=== PATIENT | male | born 1960 | race Caucasian/White ===

== ENCOUNTER 2017-03-21 10:41 | Inpatient (IN) | payer MEDICAID ==
[~2017-03-21] VITALS: Ht 182.9 cm; Wt 90.7 kg
[~2017-03-21 10:41] MED LIST: DIVA125E3 PO; OLAN20TA1 PO; QUET50TA PO
--- NOTE | 2017-03-21 11:20 | NUR ---
CASSIE Ward IN TRIAGE TO ASSESS PT FOR 5150 HOLD.
--- NOTE | 2017-03-21 11:23 | NUR ---
[facility] evaluating patient in triage room.
[2017-03-21 11:24] VITALS: BP 126/105
--- NOTE | 2017-03-21 11:28 | NUR ---
PT PLACED ON 5150 HOLD BY CASSIE HERNDON; SUICIDAL PRECAUTIONS INITIATED.
--- NOTE | 2017-03-21 11:58 | NUR ---
Patient transferred to bed 3 for further care. RN evaluating patient at bedside.
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
[2017-03-21] MEDS ORDERED: NACL 0.9% 1,000 ML IV ONE (13:10)
[2017-03-21] MEDS ORDERED: MULTIVITAMIN-12 10 ML, THIAMINE 100 MG, MAGNESIUM SULFATE 50% 2,000 MG, FOLIC ACID 5 MG... IV ONE ×5 (13:10)
--- NOTE | 2017-03-21 13:15 | NUR ---
PT APPEARS TO BE RESTING COMFORTABLY IN BED; VSS; RR EVEN/UNLABORED; STATES NO ACUTE DISTRESS AT THIS TIME; SUICIDAL PRECAUTIONS IN PLACE; WILL CONTINUE TO MONITOR.
[2017-03-21 13:36] LABS: BASOPHILS # (AUTO) 0.1 K/uL (0.00-0.22); EOSINOPHILS # (AUTO) 0.2 K/uL (0-0.4); EOSINOPHILS % (AUTO) 2.4 % (0.0-4.0); HEMATOCRIT 48.5 % (36-52); HEMOGLOBIN 16.4 g/dL (12.0-18.0); LYMPHOCYTES # (AUTO) 1.8 K/uL (2.0-11.5); MEAN CORPUSCULAR HEMOGLOBIN 30 pg (27-31); MEAN CORPUSCULAR HGB CONC 34 g/dL (33-37); MEAN CORPUSCULAR VOLUME 87 fL (80-94); MONOCYTES # (AUTO) 1.2 K/uL (0.8-1.0); MONOCYTES % (AUTO) 12.5 % (1.7-9.3); NEUTROPHILS # (AUTO) 6.1 K/uL (1.8-7.7); NEUTROPHILS % (AUTO) 65.1 % (42.2-75.2); PLATELET COUNT (AUTO) 249 K/uL (140-450); RED BLOOD CELL COUNT(AUTO) 5.55 MIL/uL (4.20-6.10); RED CELL DISTRIBUTION WIDTH 11.9 % (11.6-13.7); WHITE BLOOD COUNT (AUTO) 9.4 K/uL (4.8-10.8)
--- NOTE | 2017-03-21 13:45 | NUR ---
IV removed TO RT A/C 20 G; NO INFILTRATION, REDNESS, OR SWELLING NOTED AT THIS TIME, BUT IV NOT FLOWING WELL; PT STATES NO PAIN TO SITE. Catheter intact and site benign. Applied folded 4x4 gauze and tape to stop bleeding. PT TOLERATED PROCEDURE WELL.
[2017-03-21 13:47] LABS: ANION GAP 13.8 (8-16); CALCIUM 9.1 mg/dL (8.5-10.1); CARBON DIOXIDE 28.4 mmol/L (21-32); CHLORIDE 103 mmol/L (98-107); GFR ARICAN-AMERICAN 99 mL/min (>90); GFR NON ARICAN-AMERICAN 82 mL/min (>90); GLUCOSE 136 mg/dL (74-106); POTASSIUM 4.2 mmol/L (3.5-5.1); SODIUM SERUM 141 mmol/L (136-145); UREA NITROGEN, BLOOD 10 mg/dL (7-18)
[2017-03-21 13:51] LABS: INR 1.1 (0.8-1.2); PARTIAL THROMBOPLASTIN TIME 24.7 secs (22-35.6); PROTHROMBIN TIME 11.2 secs (10.8-13.4)
[2017-03-21 13:55] LABS: ALANINE AMINOTRANSFERASE 27 U/L (12-78); ALBUMIN 3.7 g/dL (3.4-5.0); ALCOHOL, BLOOD < 3 mg/dL (<3); ALKALINE PHOSPHATASE 89 U/L (46-116); ASPARTATE AMINOTRANSFERASE 23 U/L (15-37); BILIRUBIN,DIRECT 0.2 mg/dL (0.0-0.3); TOTAL PROTEIN, SERUM 7.7 g/dL (6.4-8.2)
--- NOTE | 2017-03-21 14:20 | NUR ---
Note chris in ED - 03/21/17 at 1547 by MEDSS PT APPEARS TO BE SLEEPING COMFORTABLY IN BED; VSS; RR EVEN/UNLABORED; STATES NO ACUTE DISTRESS AT THIS TIME; SUICIDAL PRECAUTIONS IN PLACE; WILL CONTINUE TO MONITOR.
--- NOTE | 2017-03-21 14:20 | NUR ---
PT APPEARS TO BE SLEEPING COMFORTABLY IN BED; VSS; RR EVEN/UNLABORED; POSITIONED FOR COMFORT; SUICIDAL PRECAUTIONS IN PLACE; WILL CONTINUE TO MONITOR.
[2017-03-21 14:43] LABS: APPEARANCE,URINE CLEAR (CLEAR); BILIRUBIN,URINE 1+ (NEGATIVE); BLOOD, URINE TRACE-I (NEGATIVE); COLOR,URINE YELLOW (YELLOW); LEUKOCYTE ESTERASE ,URINE NEGATIVE (NEGATIVE); NITRITE, URINE NEGATIVE (NEGATIVE); PH,URINE 5.5 (5.0-9.0); PROTEIN,URINE TRACE (NEGATIVE); UGLUCOSE NEGATIVE (NEGATIVE); UROBILINOGEN,URINE >=8.0 EU/dL (0.2 - 1)
[2017-03-21 14:54] LABS: ICTOTEST NEGATIVE (NEGATIVE)
[2017-03-21 14:55] LABS: RBC,URINE NONE SEEN /HPF (0-5)
[2017-03-21 14:56] LABS: BACTERIA,URINE None Seen /HPF (None Seen); MUCUS,URINE 1+ /LPF (None Seen); SQUAMOUS EPITHELIAL CELL,UR None Seen /LPF (0-3 (FEW)); WBC,URINE 0-2 /HPF (0-5)
[2017-03-21 14:58] LABS: AMPHETAMINE, URINE POS. ng/ml (NEG <=1000); BARBITURATE, URINE NEG. ng/ml (NEG <=200); BENZODIAZEPINE, URINE NEG. ng/mL (NEG <=200); CANNABINOID, URINE NEG. ng/mL (NEG <=50); COCAINE, URINE NEG. ng/mL (NEG <=300); OPIATE, URINE NEG. ng/mL (NEG <=2000); PHENCYCLIDINE SCREEN,URINE NEG. ng/mL (NEG <=25)
--- NOTE | 2017-03-21 15:45 | NUR ---
PT APPEARS TO BE SLEEPING COMFORTABLY IN BED; VSS; RR EVEN/UNLABORED; POSITIONED FOR COMFORT; SUICIDAL PRECAUTIONS IN PLACE; WILL CONTINUE TO MONITOR.
--- NOTE | 2017-03-21 16:48 | NUR ---
PT APPEARS TO BE SLEEPING COMFORTABLY IN BED; VSS; RR EVEN/UNLABORED; POSITIONED FOR COMFORT; SUICIDAL PRECAUTIONS IN PLACE; WILL CONTINUE TO MONITOR.
[2017-03-21] MEDS ORDERED: IBUPROFEN 800 MG TAB PO ONE (16:55)
--- NOTE | 2017-03-21 18:30 | NUR ---
PT APPEARS TO BE SLEEPING COMFORTABLY IN BED; VSS; RR EVEN/UNLABORED; POSITIONED FOR COMFORT; SUICIDAL PRECAUTIONS IN PLACE; WILL CONTINUE TO MONITOR.
--- NOTE | 2017-03-21 19:05 | NUR ---
REPORT RECEIVED FROM CATHERINE NEW
--- NOTE | 2017-03-21 19:06 | NUR ---
Pt report given to CATHERINE BRIAN. Transfer of care at this time.
--- NOTE | 2017-03-21 19:30 | NUR ---
PT AGITATED, SCREAMING AND YELLING, USING PROFANITY. CN/RN/SECURITY AND CHP OFFICER AT BEDSIDE. PT FINALLY CALMED DOWN AND WAS INFORMED HE NEEDED TO STAY IN HIS BED. CASSIE HRENDON WAS NOTIFIED AND ON THEIR WAY.
[2017-03-21] MEDS ORDERED: MORPHINE SULFATE 2 MG/ML SYR IVP PRN (19:35)
[2017-03-21] MEDS ORDERED: HYDROcodone/APAP 7.5/325 MG 1 TAB PO PRN (19:35)
[2017-03-21] MEDS ORDERED: ACETAMINOPHEN 325 MG TAB PO PRN (19:35)
[2017-03-21] MEDS ORDERED: DOCUSATE SODIUM 100 MG GELCAP PO PRN (19:35)
[2017-03-21] MEDS ORDERED: ONDANSETRON 4 MG/2 ML VIAL IM/IVP PRN (19:35)
[2017-03-21] MEDS ORDERED: LORazepam 2 MG/ML VIAL IVP ONE (19:40)
[2017-03-21] MEDS ORDERED: diphenhydrAMINE 50 MG/ML VIAL IVP ONE (19:40)
--- NOTE | 2017-03-21 19:50 | NUR ---
CASSIE HERNDON SHOWED UP TO TALK WITH PT, HE HAS CALMED DOWN AT THIS TIME. TALKING APPROPRIATE WITH STAFF. MEDS GIVEN. PT TOLERATED WELL. CASSIE HERNDON TOOK NO FURTHER ACTION.
--- NOTE | 2017-03-21 20:00 | NUR ---
PT SLEEPING AT THIS TIME, NO ACUTE DISTRESS NOTED.
--- NOTE | 2017-03-21 20:15 | NUR ---
Patient noted to have existing wounds upon arrival to ER. Photos taken of wound and placed in chart. Physician informed.
[2017-03-21 20:28] LABS: CHOL/HDL RATIO 2.5 (1-4.5); FREE T4 (FREE THYROXINE) 0.85 ng/dL (0.76-1.46); PHOSPHORUS 3.2 mg/dL (2.5-4.9); THYROID STIMULATING HORMONE 1.68 uIU/mL (0.34-3.76)
--- NOTE | 2017-03-21 20:32 | NUR ---
LABS DRAWN AT BEDSIDE
[2017-03-21] MEDS: NACL 0.9% 1,000 ML IV SCH (20:54)
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
--- NOTE | 2017-03-21 21:05 | NUR ---
Patient will be admitted to care of DR MARTINEZ. Admited to TELE. Will go to room 121B. Belongings list completed. Report to CATHERINE LUA.
[2017-03-21 21:10] LABS: LACTIC ACID 2.4 mmol/L (0.4-2.0)
[2017-03-21] MEDS ORDERED: diphenhydrAMINE 50 MG/ML VIAL IVP PRN (21:25)
[2017-03-21] MEDS ORDERED: HALOPERIDOL IM 5 MG/ML VIAL IM ONE ×2 (21:25→21:40)
[2017-03-21] MEDS: LORazepam 2 MG/ML VIAL IM/IVP PRN (22:31)
[2017-03-22] VITALS: BP 118/72
--- NOTE | 2017-03-22 00:40 | NUR ---
PT IS SLEEPING RIGHT NOW BUT EASILY AROUSABLE. NO S/S OF ANY DISCOMFORT AT THIS TIME. ALL NEEDS ARE ATTENDED. CALL LIGHT WITHIN REACH. WILL CONTINUE TO MONITOR.
[2017-03-22] MEDS: LORazepam 2 MG/ML VIAL IM/IVP PRN (03:18)
[2017-03-22 04:00] VITALS: BP 123/70
--- NOTE | 2017-03-22 05:45 | NUR ---
AM CARE RENDERED. BED LINEN CHANGED. INSTRUCTED PT TO REPOSITION. KEPT CLEAN AND DRY. CALL LIGHT WITHIN REACH. WILL CONTINUE TO MONITOR.
--- NOTE | 2017-03-22 07:18 | NUR ---
PT HAS NO S/S OF ANY DISCOMFORT. PLAN OF CARE ENDORSE TO TED RN AT BEDSIDE FOR CONTINUITY OF CARE.
--- NOTE | 2017-03-22 07:20 | NUR ---
REPORT RECIEVED FROM SECURITY INSTALLER, PT RESTING QUIETLY WITH EYES CLOSED, RESP EVEN UNLABORED ON RA IN NAD, IV SITE CLEAR, PLAN OF CARE DISCUSSED, PT DOES NOT ANSWER QUESTIONS, PT APPEARS IN NO PAIN OR DISCOMFORT, NO IMMEDIATE NEEDS IDENTIFIED AT THIS TIME, BED LOCKED IN LOW POSITION, SIDE RAILS UP, CALL HELM WITHIN REACH, PT ON 1;1 SAFETY WATCH, WILL CONTINUE TO MONITOR.
[2017-03-22 08:00] VITALS: BP 98/46
--- NOTE | 2017-03-22 09:18 | NUR ---
PATIENT HAS BEEN SCREENED AND CATEGORIZED LOW NUTRITION RISK. PATIENT WILL BE SEEN WITHIN 7 DAYS OF ADMISSION. 03/28/[address]
[2017-03-22 12:00] VITALS: BP 95/56
--- NOTE | 2017-03-22 12:00 | NUR ---
PT RESTING WITH EYES CLOSED, AROUSES TO VOICE, RESP EVEN UNLABORED, SKIN WARM DRY COLOR WNL, VSS, PT DOES NOT ANSWER QUESTIONS BUT ABLE TO VERBALIZE NEEDS, STATES "I'M COLD, I NEED A URINAL OR SOMETHING", URINAL PROVIDED, EXTRA BLANKET PROVIDED, PT REMAINS ON WET END SUPERVISOR, REMAINS ON 1:1 WATCH, CALL HELM WITHIN REACH, SIDE RAILS UP, BED LOCKED IN LOW POSITION, WILL CONTINUE TO MONITOR.
[2017-03-22] MEDS: NACL 0.9% 1,000 ML IV SCH (12:12)
[2017-03-22] MEDS ORDERED: ALBUTEROL SULFATE/IPRATROPIU 3 ML SOL IH PRN (14:40)
--- NOTE | 2017-03-22 14:49 | NUR ---
OK TO RUN VALPROIC ACID LEVEL ON BLOOD DRAWN IN ER PER DR ZHOU, LAB MADE AWARE.
--- NOTE | 2017-03-22 15:01 | NUR ---
SPOKE WITH INEZ FROM [facility]. REVIEW TO GO TO [facility]. FAXED INITIAL REVIEW TO [facility] [phone] PHONE SOFIA [phone]
--- NOTE | 2017-03-22 15:29 | NUR ---
[facility] CALLED AND ASKING IF PATIENT NEEDS BED, AT THIS TIME NO BED AVAILABLE BUT SHE WILL CALL [facility] FOR POSSIBLE BED.
[2017-03-22 16:00] VITALS: BP 135/87
[2017-03-22] MEDS: DIVALPROEX 250 MG TABEC PO SCH (16:36)
--- NOTE | 2017-03-22 16:37 | NUR ---
PT RESTING WITH EYES CLOSED, AROUSABLE BY VOICE, RESP EVEN UNLABORED, SOMEWHAT COOPERATIVE, MAGALI PO MED AT THIS TIME, PT REMAINS ON DIE CUT OPERATOR, REMAINS ON 1:1 WATCH, CALL HELM WITHIN REACH, URINAL WITHIN REACH, BED LOCKED IN LOW POSITION, SIDE RAILS UP, IVF INFUSING WELL, SITE CLEAR, WILL CONTINUE TO MONITOR.
--- NOTE | 2017-03-22 17:05 | NUR ---
PT SITTING UP IN BED EATING LATE LUNCH, PT MAGALI PO WELL, DENIES N/V, DENIES PAIN, IGNORES AND DOES NOT ANSWER QUIETIONS BUT CALM COOPERATIVE AT THIS TIME, PT REMAINS ON PLANER SETUP OPERATOR, PT REMAINS ON 1:1 WATCH, IVF INFUSING WELL, SITE CLEAR, CALL HELM WITHIN REACH, SIDE RAILS UP, BED LOCKED IN LOW POSITION, WILL CONTINUE TO MONITOR.
--- NOTE | 2017-03-22 19:43 | NUR ---
REPORT GIVEN TO DRIVER LIFTER OF SANITATION TRUCK, PT IN STABLE CONDITION.
--- NOTE | 2017-03-22 19:45 | NUR ---
RECEIVED REPORTS FROM DAY RN, PATIENT IS SLEEPING IN BED, NO S/S OF ACUTE DISTRESS OR DISCOMFORT NOTED, RESPIRATION EVEN AND UNLABORED, 1:1 SITTER AT BEDSIDE. IV PATIENT AND INTACT, FLUIDS INFUSING WELL, CALL LIGHT WITHIN REACH, SAFETY MEASURE ENSURED, WILL CONTINUE TO MONITOR
[2017-03-22 20:00] VITALS: BP 93/76
--- NOTE | 2017-03-22 20:10 | NUR ---
PATIENT IS UPSET BECAUSE HE WAS WAKEN UP FOR VITAL SIGNS, PATIENT THREW THE FOOD ON THE FLOOR, AND SAID,"I'M GOING TO HURT YOU." PATIENT IS RESTING IN THE BED NOW. SITTER IS AT THE BEDSIDE, CALL LIGHT WITHIN REACH, SAFETY MEASURE ENSURED, WILL CONTINUE TO MONITOR.
[2017-03-22] MEDS: QUEtiapine FUMARATE 25 MG TAB PO SCH (21:00)
[2017-03-22] MEDS ORDERED: DIVALPROEX SODIUM PO SCH (21:00)
[2017-03-22] MEDS ORDERED: OLANZapine 5 MG TAB PO SCH (21:00)
--- NOTE | 2017-03-22 22:00 | NUR ---
PATIENT IS SLEEPING IN BED, SITTER AT BEDSIDE. NO S/S OF ACUTE DISTRESS NOTED, RESPIRATION EVEN AND UNLABORED. SITTER AT BEDSIDE. CALL LIGHT WITHIN REACH, SAFETY MEASURE ENSURED, WILL CONTINUE TO MONITOR.
--- NOTE | 2017-03-23 | NUR ---
PATIENT ASLEEP IN BED, TRIED TO TAKE VITAL SIGNS, PATIENT REFUSED, EDUCATED PATIENT THE IMPORTANCE OF MONITORING THE VITAL SIGNS, PATIENT STILL REFUSED. NO S/S OF ACUTE DISTRESS NOTED, RESPIRATION EVEN AND UNLABORED, 1:1 SITTER AT BEDSIDE. CALL LIGHT WITHIN REACH, SAFETY MEASURE ENSURED, WILL CONTINUE TO MONITOR.
--- NOTE | 2017-03-23 04:00 | NUR ---
PATIENT ASLEEP IN BED, TRIED TO TAKE VITAL SIGNS, PATIENT REFUSED, EDUCATED PATIENT THE IMPORTANCE OF MONITORING THE VITAL SIGNS, PATIENT BECAME AGITATED AND STILL REFUSED. NO S/S OF ACUTE DISTRESS NOTED, RESPIRATION EVEN AND UNLABORED, 1:1 SITTER AT BEDSIDE. CALL LIGHT WITHIN REACH, SAFETY MEASURE ENSURED, WILL CONTINUE TO MONITOR.
[2017-03-23] MEDS: NACL 0.9% 1,000 ML IV SCH ×2 (04:52→21:32)
--- NOTE | 2017-03-23 05:58 | NUR ---
PT IS SLEEPING IN BED, 1:1 SITTER AT BEDSIDE, RESPIRATION EVEN AND UNLABORED, CALL LIGHT WITHIN REACH, SAFETY MEASURE ENSURED, WILL CONTINUE TO MONITOR
--- NOTE | 2017-03-23 07:19 | NUR ---
ENDORSED PLAN OF CARE TO DAY RN. PATIENT IS STABLE.
--- NOTE | 2017-03-23 07:51 | NUR ---
REPORT RECEIVED FROM NURSE NAVIGATOR, PT RESTING WITH EYES CLOSED, AROUSES TO VOICE, RESP EVEN UNLABORED ON ROOM AIR IN NAD, SKIN WARM DRY COLOR WNL, IVF INFUSING WELL, SITE CLEAR, PLAN OF CARE REVIEWED, PT REMAINS ON CLEAN UP SUPERVISOR, PT ON 1:1 WATCH, CALL HELM WITHIN REACH, SIDE RAILS UP, BED LOCKED IN LOW POSITION, WILL CONTINUE TO MONITOR.
[2017-03-23 08:00] VITALS: BP 116/48
[2017-03-23 08:18] LABS: T4 (THYROXINE) 4.2 ug/dL (4.5-12.0)
[2017-03-23] MEDS: OLANZapine 5 MG TAB PO SCH (09:13)
[2017-03-23] MEDS: DIVALPROEX 250 MG TABEC PO SCH ×3 (09:13→17:14)
[2017-03-23] MEDS: QUEtiapine FUMARATE 25 MG TAB PO SCH ×2 (09:14→20:35)
--- NOTE | 2017-03-23 09:17 | NUR ---
SCHEDULED MEDS GIVEN, PT COOPERATIVE, MAGALI PO MEDS WELL, RETURNED BACK TO SLEEP IMMEDIATELY, PT REMAINS ON TOBACCO CURER, REMAINS ON 1:1 WATCH, SAFETY MEASURES MAINTAINED, WILL CONTINUE TO MONITOR.
--- NOTE | 2017-03-23 11:53 | NUR ---
SS NOTE: PER LAURA FROM [facility], PT'S INFORMATION IS PENDING REVIEW. SHE ALSO STATED THAT THEY RECEIVED A LOT OF PACKETS FROM VARIOUS HOSPITALS.
[2017-03-23 13:12] VITALS: BP 99/57
--- NOTE | 2017-03-23 13:20 | NUR ---
SCHEDULED MED GIVEN, PT AROUSES EASILY WITH VOICE, SITS UP IN BED WITHOUT PROBLEM, MAGALI PO MED WELL, EATING LUNCH NOW, PT VOICES NO COMPLAINT, NO AGGRESSIVE BEHAVIOR AT THIS TIME, REMAINS ON 1;1 WATCH, DOWN GRADED TO MED SURGE, SAFETY MEASURES IN PLACE, WILL CONTINUE TO MONITOR.
--- NOTE | 2017-03-23 13:20 | NUR ---
SS NOTE: [facility] KARO [facility], THEY DO NOT ACCEPT MEDI-DORYS FOR PTS OVER 20 YEARS OLD PER SILVINA FROM [facility], THEY DO NOT ACCEPT MEDI-DORYS FOR PTS OVER 20 YEARS OLD PER JACOB FROM [facility], THEY DO NOT ACCEPT MEDI-DORYS FOR PTS OVER 20 YEARS OLD PER BRETT FROM [facility], THEY DO NOT ACCEPT MEDI-DORYS FOR PTS OVER 20 YEARS OLD PER BELINDA FROM [facility], NO BEDS AVAILABLE
--- NOTE | 2017-03-23 13:44 | NUR ---
FAXED CONCURRENT REVIEW TO [facility] [phone] PHONE SOFIA [phone]
[2017-03-23 15:04] LABS: BASOPHILS # (AUTO) 0.3 K/uL (0.00-0.22); EOSINOPHILS # (AUTO) 0.2 K/uL (0-0.4); EOSINOPHILS % (AUTO) 2.2 % (0.0-4.0); HEMATOCRIT 41.7 % (36-52); HEMOGLOBIN 14.2 g/dL (12.0-18.0); LYMPHOCYTES % (AUTO) 24.8 % (20.5-51.1); MEAN CORPUSCULAR HEMOGLOBIN 30 pg (27-31); MEAN CORPUSCULAR HGB CONC 34 g/dL (33-37); MEAN CORPUSCULAR VOLUME 88 fL (80-94); MONOCYTES # (AUTO) 0.7 K/uL (0.8-1.0); MONOCYTES % (AUTO) 8.6 % (1.7-9.3); NEUTROPHILS # (AUTO) 4.8 K/uL (1.8-7.7); PLATELET COUNT (AUTO) 270 K/uL (140-450); RED BLOOD CELL COUNT(AUTO) 4.75 MIL/uL (4.20-6.10)
[2017-03-23 15:10] LABS: ANION GAP 13.3 (8-16); CALCIUM 8.5 mg/dL (8.5-10.1); CARBON DIOXIDE 26.6 mmol/L (21-32); CREATININE 0.9 mg/dL (0.6-1.3); POTASSIUM 3.9 mmol/L (3.5-5.1)
[2017-03-23 15:15] LABS: PHOSPHORUS 4.2 mg/dL (2.5-4.9)
[2017-03-23 16:00] VITALS: BP 104/54
--- NOTE | 2017-03-23 17:06 | NUR ---
PT RESTING QUIETLY IN NAD, OK TO REMOVE PIV AND DC IVF PER DR CARRASCO REQUESTED BY PT, IV REMOVED, CATH TIP INTACT, BLEEDING CONTROLLED, PT MAGALI WELL, WILL CONTINUE TO MONITOR.
--- NOTE | 2017-03-23 19:47 | NUR ---
REPORT GIVEN TO CHEMIST STEROIDS NURSE, PT IN STABLE CONDITION.
--- NOTE | 2017-03-23 19:48 | NUR ---
RECD. RESTING IN BED, AWAKE, ALERT/ORIENTED. RESPIRATION EVEN AND UNLABORED. ABLE TO VERBALIZED NEEDS BUT DOES NOT RESPOND TO NURSE QUESTIONS. NO IV ACCESS, DOES NOT WANT NEW IV LINE TO BE PUT ON ENDORSED BY AM NURSE. PLAN OF CARE FOR THE SHIFT DISCUSSED. NEEDS REINFORCEMENT. AMBULATORY TO BR. 1:1 SITTER MONITORING PATIENT AT THE DOOR. NO APPEARANCE OF PAIN NOTED, 0/10.
--- NOTE | 2017-03-23 19:50 | NUR ---
SITTING ON BED, EATING HIS DINNER TRAY.
--- NOTE | 2017-03-23 20:00 | NUR ---
Patient's Plan of Care was discussed and reviewed with FIBERGLASS BOAT BUILDER: CAROL GUTIERREZ
--- NOTE | 2017-03-23 20:37 | NUR ---
REFUSED HIS NIGHT MEDICATION, STATED "I WANT TO SLEEP." INSTRUCTED TO CALL NURSE WHEN HE NEEDS IT. DID NOT RESPOND BUT COVERED SELF WITH BLANKET.
--- NOTE | 2017-03-24 | NUR ---
SLEEPING IN BED, REFUSED VITAL SIGNS TO BE TAKEN.
--- NOTE | 2017-03-24 06:58 | NUR ---
ABLE TO SLEEP WELL. NO RESPIRATORY DISTRESS NOTED, NO AGITATION NOTED DURING SHIFT. REMAIN UNCOOPERATIVE WITH REGARDS TO CARE GIVEN. CONDITION REMAIN STABLE. WILL ENDORSE TO AM NURSE FOR CONTINUITY OF CARE.
--- NOTE | 2017-03-24 07:10 | NUR ---
ENDORSED TO CATHERINE WARD FOR CONTINUITY OF CARE.
--- NOTE | 2017-03-24 07:30 | NUR ---
PT AAOX4. PT CALM AND QUIET, ONLY ANSWERS YES AND NO QUESTIONS AT THIS TIME. ON 5150 HOLD, WITH 1:1 SITTER AT THE BEDSIDE FOR SAFETY. NO SOB NOTED. NO C/O PAIN AT THIS TIME. NO IV ACCES, PT REFUSED IV RESTART, ATTENDING PHYSICIAN HAS BEEN AWARE. WITH SMALL ABRASIONS ON LT EYEBROW /LT FOREHEAD, DRY AND OPEN TO AIR. CHEST CLEAR, ABDOMEN SOFT, BOWEL SOUNDS PRESENT. NO EDEMA NOTED. NO SUICIDAL IDEATION NOTED. INSTRUCTED PT TO CALL FOR ASSISTANCE, CALL LIGHT WITHIN REACH, PT VERBALIZED UNDERSTANDING.
[2017-03-24 08:00] VITALS: BP 94/46
--- NOTE | 2017-03-24 10:18 | NUR ---
SS NOTE: INA DIEGO FROM [facility], PT HAS BEEN ACCEPTED BUT THEY DO NOT HAVE ANY BEDS AVAILABLE TODAY
[2017-03-24] MEDS: QUEtiapine FUMARATE 25 MG TAB PO SCH ×2 (11:13→22:09)
[2017-03-24] MEDS: DIVALPROEX 250 MG TABEC PO SCH ×3 (11:13→17:00)
[2017-03-24] MEDS: OLANZapine 5 MG TAB PO SCH (11:13)
[2017-03-24] MEDS: NACL 0.9% 1,000 ML IV SCH (14:12)
--- NOTE | 2017-03-24 15:00 | NUR ---
DR. PINEDA HERE TO REEVALUATE PT.
--- NOTE | 2017-03-24 19:08 | NUR ---
PT RESTING. NO SOB NOTED. NO COMPLAINTS MADE. NO SUICIDAL IDEATION NOTED THE ENTIRE SHIFT. NO BEDS AVAILABLE YET AT [facility] IN [place]. STILL WITH 1:1 SITTER FOR SAFETY. WILL ENDORSE TO NEXT SHIFT NURSE FOR CONTINUITY OF CARE.
--- NOTE | 2017-03-24 19:15 | NUR ---
RECD. RESTING IN BED SLEEPING BUT WAKES UP WHEN QUESTIONS ASKED. RESPIRATION EVEN AND UNLABORED. NO IV ACCESS. NOTED TATTOOS ON BILATERAL UPPER ARMS. PLAN OF CARE DISCUSSED. HALF OPENED EYES AND NOD. NO APPEARANCE OF PAIN NOTED . 1:1 SITTER MONITORING PATIENT NEAR DOOR.
--- NOTE | 2017-03-24 20:00 | NUR ---
Patient's Plan of Care was discussed and reviewed with GIRLS SWIMMING COACH: CAROL GUTIERREZ
--- NOTE | 2017-03-25 | NUR ---
STILL SLEEPING COMFORTABLY, REFUSED VITAL SIGN TO BE TAKEN.
--- NOTE | 2017-03-25 03:00 | NUR ---
AMBULATED TO BR TO VOID, BACK TO BED. WENT BACK TO SLEEP. NO AGITATION NOTED.
--- NOTE | 2017-03-25 06:00 | NUR ---
SLEEPING MOST OF THE TIME DURING THE SHIFT.
[2017-03-25] MEDS: NACL 0.9% 1,000 ML IV SCH (06:52)
--- NOTE | 2017-03-25 07:10 | NUR ---
RESTING COMFORTABLY SLEEPING, SITTER MONITORING PATIENT. WILL ENDORSE TO AM NURSE FOR CONTINUITY OF CARE.
--- NOTE | 2017-03-25 07:11 | NUR ---
PT ASLEEP, EASILY AROUSABLE TO VERBAL AND TACTILE STIMULI. NO SIGNS OF ACUTE DISTRESS. SKIN IS WARM AND DRY. NO SIGNS OF ANY BOWEL/BLADDER DISCOMFORT, DENIES OF ANY PAIN AT THIS TIME. ALL NEEDS ATTENDED, SAFETY PRECAUTIONS MAINTAINED, WITH 1:1 SITTER. CALL LIGHT WITHIN REACH.
[2017-03-25 08:00] VITALS: BP 92/55
[2017-03-25] MEDS: QUEtiapine FUMARATE 25 MG TAB PO SCH ×2 (08:28→22:32)
[2017-03-25] MEDS: DIVALPROEX 250 MG TABEC PO SCH ×3 (08:29→16:48)
[2017-03-25] MEDS: OLANZapine 5 MG TAB PO SCH (08:29)
--- NOTE | 2017-03-25 09:06 | NUR ---
SS NOTE: PER JOHNATHON FROM [facility], THEY DO NOT ANTICIPATE ON HAVING ANY BEDS AVAILABLE TODAY BUT WILL CALL THE NURSES' STATION IF ONE COMES UP IN THE EVENING Addendum: 03/25/17 at 0907 by Emelia Cardenas [facility] INTAKE ([phone])
--- NOTE | 2017-03-25 11:52 | NUR ---
Clinical review faxed to [facility] at [phone]
--- NOTE | 2017-03-25 12:13 | NUR ---
1100 MET WITH PT AT BEDSIDE. PT AWAKE BUT KEPT SHEET OVER HIS HEAD DURING CONVERSATION. PT STATED THAT HE HAS BEEN HOMELESS FOR MANY YEARS AND HANGS OUT IN THE [facility] AREA. STATED HE WANTS TO LIVE IN A SENIOR APARTMENT COMPLEX. PT STATED THAT HE DOES GET $950/MONTH SSI BUT DOES NOT WANT TO LIVE IN A ROOM AND BOARD. ASKED IF HE HAD MADE ANY ATTEMPTS TO FIND OUT IF HE WOULD QUALIFY FOR SENIOR APT AND HE SAID "NO THE WAITING LIST IS TOO LONG AND NOBODY HELPS ME I MIGHT WELL ". INFORMED PT THAT ATTEMPTS ARE BEING MADE TO FIND INPATIENT PSYCH UNIT AND ASKED IF HE WOULD LIKE TO HAVE RESOURCES PROVIDED TO USE AFTER DISCHARGE AND HE STATED "WE'RE DONE" AND HE ENDED THE CONVERSATION.
[2017-03-25 15:43] VITALS: BP 103/62
[2017-03-25] MEDS ORDERED: IBUPROFEN 800 MG TAB PO PRN (15:55)
--- NOTE | 2017-03-25 19:30 | NUR ---
PT AWAKE AND RESPONSIVE, NO SIGNS OF ACUTE DISTRESS. ENDORSED TO ONCOMING TIME RECORDER NURSE FOR CONTINUITY OF CARE.
--- NOTE | 2017-03-25 19:35 | NUR ---
RECEIVED PT IN STABLE CONDITION FROM AM NURSE. AWAKE, ALERT AND ORIENTED X3. ON 5150 HOLD. HAS 1;1 SITTER. NO C/O ANY DISCOMFORT NOR PAIN NOTED. MED SURG PT. NO IV ACCESS. INSTRUCTED PT THE NEED FOR IV ACCESS WHILE HERE , BUT STILL REFUSE. WILL TRY TO ASK AGAIN LATER. SKIN WITH MULTIPLE LESIONS ON THE FACE ,ARMS AND LEGS. WILL ADDRESS THIS TO MD. BED ON LOW POSITION, SIDE RAILS UP X2. CALL LIGHT WITHIN EASY REACH. WILL CONTINUE TO MONITOR.
--- NOTE | 2017-03-25 20:00 | NUR ---
NO DISTRESS/SOB/WHEEZING NOTED AT THIS TIME. NO INDICATION FOR HHN PRN TX AT THIS TIME.
--- NOTE | 2017-03-25 20:00 | NUR ---
PAGED DR. MICHELLE Yates ,DR. WONG NOZZLEMAN. CALL [facility] AND MADE AWARE ABOUT PT CONCERN ABOUT THE MULTIPLE LESIONS ON THE BODY. WILL DO SOME ORDER.
--- NOTE | 2017-03-25 20:30 | NUR ---
TALKED TO CATHERINE BURNETT ELECTRICIAN SUBSTATION REGARDING NEW ORDER FOR POLYSPORIN OINTMENT. SHE SAID SHE WILL TRY IF SHE CAN OVERRIDE.
--- NOTE | 2017-03-25 22:30 | NUR ---
SLEEPING WELL AT THIS TIME. NO S/S OF ANY DISCOMFORT NOTED.
[2017-03-25] MEDS: BACITRACIN ZINC/POLYMYXIN B OINT 30 GM TUBE TP SCH (22:33)
--- NOTE | 2017-03-26 | NUR ---
PT SLEEPING , REFUSED VITAL SIGNS.
--- NOTE | 2017-03-26 02:00 | NUR ---
SLEEPING AT THIS TIME.
--- NOTE | 2017-03-26 04:00 | NUR ---
MADE ROUNDS. SLEEPING WELL. 1: 1 SITTER AT BEDSIDE.
--- NOTE | 2017-03-26 07:45 | NUR ---
ENDORSED PT IN STABLE CONDITION TO AM NURSE.
--- NOTE | 2017-03-26 08:00 | NUR ---
PT REFUSED AM VITAL SIGNS CHECK, RISKS AND BENEFITS EXPLAINED. CONTINUE TO MONITOR.
[2017-03-26] MEDS: OLANZapine 5 MG TAB PO SCH (09:00)
[2017-03-26] MEDS: QUEtiapine FUMARATE 25 MG TAB PO SCH ×2 (09:00→20:17)
[2017-03-26] MEDS: DIVALPROEX 250 MG TABEC PO SCH ×3 (09:00→16:41)
[2017-03-26] MEDS: BACITRACIN ZINC/POLYMYXIN B OINT 30 GM TUBE TP SCH (09:00)
--- NOTE | 2017-03-26 09:18 | NUR ---
PT REFUSED SCHEDULED AM MEDS, RISKS AND BENEFITS EXPLAINED. CONTINUE TO MONITOR.
--- NOTE | 2017-03-26 12:15 | NUR ---
SS NOTE: INA DUBOIS FROM [facility] ([phone]), NO BEDS AVAILABLE TODAY BUT THEY WILL CALL THE NURSES' STATION IF ONE COMES UP DURING THE WEEKEND
--- NOTE | 2017-03-26 12:44 | NUR ---
PT REFUSED SCHEDULED MED, VERBALIZED "I DO NOT TAKE DEPAKOTE!" IN AN AGITATED BEHAVIOR. RISKS AND BENEFITS EXPLAINED. CONTINUE TO MONITOR.
[2017-03-26] MEDS ORDERED: NEOMYCIN/POLYMYXIN/BACITRACIN 0.9 GM/1 PKT TP PRN (13:10)
[2017-03-26] MEDS ORDERED: ACETAMINOPHEN 650 MG/20.3 ML UDC PO PRN (13:30)
[2017-03-26] MEDS ORDERED: LORazepam 2 MG/ML VIAL IVP PRN (13:40)
[2017-03-26] MEDS ORDERED: diphenhydrAMINE 50 MG/ML VIAL IVP PRN (13:40)
[2017-03-26] MEDS ORDERED: MORPHINE SULFATE 2 MG/ML SYR IVP PRN (13:45)
--- NOTE | 2017-03-26 13:50 | NUR ---
FAXED CONCURRENT REVIEW TO [facility] [phone] PHONE SOFIA [phone]
--- NOTE | 2017-03-26 17:25 | NUR ---
WAS SEEN BY DR. CATALAN. CONTINUE TO MONITOR.
--- NOTE | 2017-03-26 19:07 | NUR ---
PT AWAKE AND RESPONSIVE, NO SIGNS OF ACUTE DISTRESS. ENDORSED TO ONCOMING ELECTRIC HOIST OPERATOR NURSE FOR CONTINUITY OF CARE.
--- NOTE | 2017-03-26 19:20 | NUR ---
PATIENT IS CURRENTLY AWAKE SMILING COMPLIANT DENIES PAIN AND DISCOMFORT.PATIENT REFUSED IV ACCESS PER AM SHIFT NURSE.PATIENT WATCHING TV CALM AND COOPERATIVE.PATIENT ABLE TO MAKE NEEDS KNOWN AND NEEDS CONTINUE TO BE MET.CALL LIGHT WITHIN REACH.
[2017-03-26 20:00] VITALS: BP 93/64
--- NOTE | 2017-03-26 21:30 | NUR ---
Patient's Plan of Care was discussed and reviewed with WELT CUTTER: JUANY ALVAREZ
--- NOTE | 2017-03-26 22:30 | NUR ---
PATIENT WATCHING TV NEEDS MET.PATIENT DENIES HEARING VOICES AND HAS NO SUICIDAL IDEATION.WILL CONTINUE TO MONITOR.CALL LIGHT WITHIN REACH.
--- NOTE | 2017-03-27 00:40 | NUR ---
PATIENT IS CURRENTLY RESTING IN BED SLEEPING.REFUSED VITAL SIGNS PATIENT STATES,"PLEASE DON'T BOTHER ME IF IM SLEEPING."
--- NOTE | 2017-03-27 02:31 | NUR ---
PATIENT IS CURRENTLY SLEEPING NO SUICIDAL IDEATION.CALL LIGHT WITHIN REACH WILL CONTINUE TO MONITOR.
--- NOTE | 2017-03-27 04:45 | NUR ---
PATIENT STABLE SLEEPING IN BED IN NO DISTRESS WILL CONTINUE TO MONITOR.
[2017-03-27] MEDS ORDERED: LEVOTHYROXINE 0.025 MG TAB PO SCH (06:30)
[2017-03-27 07:07] LABS: BASOPHILS # (AUTO) 0.1 K/uL (0.00-0.22); BASOPHILS % (AUTO) 1.9 % (0.0-2.0); EOSINOPHILS # (AUTO) 0.3 K/uL (0-0.4); EOSINOPHILS % (AUTO) 3.9 % (0.0-4.0); HEMATOCRIT 41.7 % (36-52); HEMOGLOBIN 14.5 g/dL (12.0-18.0); LYMPHOCYTES # (AUTO) 1.8 K/uL (2.0-11.5); LYMPHOCYTES % (AUTO) 23.9 % (20.5-51.1); MEAN CORPUSCULAR HEMOGLOBIN 30 pg (27-31); MEAN CORPUSCULAR HGB CONC 35 g/dL (33-37); MEAN CORPUSCULAR VOLUME 87 fL (80-94); MONOCYTES # (AUTO) 0.8 K/uL (0.8-1.0); NEUTROPHILS # (AUTO) 4.5 K/uL (1.8-7.7); NEUTROPHILS % (AUTO) 59.3 % (42.2-75.2); PLATELET COUNT (AUTO) 284 K/uL (140-450); RED BLOOD CELL COUNT(AUTO) 4.78 MIL/uL (4.20-6.10); RED CELL DISTRIBUTION WIDTH 12.1 % (11.6-13.7); WHITE BLOOD COUNT (AUTO) 7.5 K/uL (4.8-10.8)
[2017-03-27 07:21] LABS: MAGNESIUM 1.9 mg/dL (1.8-2.4); PHOSPHORUS 3.9 mg/dL (2.5-4.9)
[2017-03-27 07:27] LABS: ANION GAP 11.4 (8-16); CALCIUM 8.6 mg/dL (8.5-10.1); CARBON DIOXIDE 28.5 mmol/L (21-32); CREATININE 0.9 mg/dL (0.6-1.3); POTASSIUM 3.9 mmol/L (3.5-5.1)
--- NOTE | 2017-03-27 07:38 | NUR ---
PATIENT IS RESTING IN BED REPORT ENDORSED TO CATHERINE CASTILLO.HE WILL FOLLOW UP.
--- NOTE | 2017-03-27 07:39 | NUR ---
RECEIVED REPORT FROM NIGHT NURSE AT PT BEDSIDE. PT ALERT AND ORIENTED. DENIES PAIN. NO S/S OF ACUTE DISTRESS. DENIES SUICIDAL THOUGHTS. IV REFUSED. BED IN LOWEST POSITION. CALL LIGHT WITHIN REACH.
[2017-03-27 08:00] VITALS: BP 106/72
[2017-03-27] MEDS: BACITRACIN ZINC/POLYMYXIN B OINT 30 GM TUBE TP SCH (09:00)
[2017-03-27] MEDS: DIVALPROEX 250 MG TABEC PO SCH ×2 (09:00→13:00)
[2017-03-27] MEDS ORDERED: DOCUSATE SODIUM 100 MG GELCAP PO SCH (09:00)
[2017-03-27] MEDS: QUEtiapine FUMARATE 25 MG TAB PO SCH (09:20)
[2017-03-27] MEDS: OLANZapine 5 MG TAB PO SCH (09:21)
--- NOTE | 2017-03-27 09:52 | NUR ---
PATIENT TOLERATED BREAKFAST AND PO MEDS. RESTING IN BED. NO S/S OF ACUTE DISTRESS.
--- NOTE | 2017-03-27 12:11 | NUR ---
Social Service Note: I was informed by patient's nurse Zack, patient had been provided with a list of homeless shelters, room and boards, and food [place].
--- NOTE | 2017-03-27 12:30 | NUR ---
PATIENT TOLERATED LUNCH, SLEEPING IN BED AT THIS TIME. NO S/S OF ACUTE DISTRESS.
--- NOTE | 2017-03-27 14:00 | NUR ---
SPOKE WITH PATIENT REGARDING DISCHARGE PLANNING AND PLAN OF CARE UPON DISCHARGE. RESOURCES PROVIDED FOR PATIENT. PATIENT IN AGREEMENT WITH DISCHARGE PLANS.
[2017-03-27] MEDS ORDERED: ACET-2869 PO (15:13)
--- NOTE | 2017-03-27 15:30 | NUR ---
DR. ZHOU SPOKE WITH PATIENT REGARDING PLAN OF CARE AFTER DISCHARGE. PATIENT HAD ALL NEEDS MET AND QUESTIONS ANSWERED. PATIENT AGREED TO BE DISCHARGED TO HOMELESS LONG-TERM. DISCHARGE INSTRUCTIONS AND TEACHING GIVEN ALONG WITH RESOURCES. PATIENT IS AMBULATORY. NO S/S OF DISTRESS NOTED. AAOX4. DISCHARGE ID BAND REMOVED. PROVIDED PATIENT WITH TRANSPORTATION. PATIENT WHEELED TO FRONT LOBBY.
--- NOTE | 2017-03-31 10:23 | NUR ---
CM NOTE DISCHARGE SUMMARY FAXED TO [facility] / FAX# [phone], ATTN: SONAL Blackburn
== END 2017-03-27 15:36 | disposition home or self-care (01) | DRG 52 ==
LOC: MED 10:41 → MTU 19:41
PROVIDERS: ADMIT Family Medicine; ATTEND Family Medicine
DX: G92 Toxic encephalopathy (principal); N17.0 Acute kidney failure with tubular necrosis; J45.909 Unspecified asthma, uncomplicated; F25.0 Schizoaffective disorder, bipolar type; R45.851 Suicidal ideations; F17.210 Nicotine dependence, cigarettes, uncomplicated; E11.9 Type 2 diabetes mellitus without complications; S00.212A Abrasion of left eyelid and periocular area, initial encounter; F41.9 Anxiety disorder, unspecified; Z88.1 Allergy status to other antibiotic agents; Z59.0 Homelessness; Z91.5 Personal history of self-harm; Y93.89 Activity, other specified; Y92.89 Other specified places as the place of occurrence of the external cause; Y99.8 Other external cause status; Z79.899 Other long term (current) drug therapy; Z91.19 Patient's noncompliance with other medical treatment and regimen; V19.9XXA Pedal cyclist (driver) (passenger) injured in unspecified traffic accident, initial encounter; F15.10 Other stimulant abuse, uncomplicated
CPT/HCPCS: 36415; 71010; 80048; 80053; 80076; 80305; 81001; 82150; 83036; 83605; 83690; 83735; 83880; 84100; 84436; 84439; 84443; 84479; 85025; 85610; 85730; 87040; 87081; 87086; 93005; 94640; 96361; 96365; 96366; 96375; 99285; A9153; G0482; J1200; J1630; J2060; J3411; J3475; J3490; J7030; J7620; Q0092

== ENCOUNTER 2017-09-16 17:39 | Emergency (ER) | payer MEDICAID ==
[~2017-09-16] VITALS: Ht 180.3 cm; Wt 90.7 kg
[~2017-09-16 17:39] MED LIST changes: +ACET-2869 PO
[2017-09-16 18:03] VITALS: BP 102/62
--- NOTE | 2017-09-16 18:13 | NUR ---
Note undone in EDM - 09/16/17 at 1849 by JOHN PATIENT PI CKED UP FROM [facility] TO [facility].PATIENT STATED HE WANTS TO KILL HIMSELF AND OTHERS. OUT OF MEDS. DEPAKOTE/HALDOL/COGENTIN. HX: SCHIZO. SKIN IS PINK/WARM/DRY; LUNGS CLEAR BL; HR EVEN AND REGULAR; PT REFUSED TO ANSWER QUESTIONS, PT STATED " ASK ME QUESTIONS OVER AND OVER AGAIN" PATIENT POSITIONED FOR COMFORT; HOB ELEVATED; BEDRAILS UP X2; BED DOWN. ER MADE AWARE OF PT STATUS.
--- NOTE | 2017-09-16 18:20 | NUR ---
CALLED CASSIE HERNDON TO ASSESS PT.
--- NOTE | 2017-09-16 18:25 | NUR ---
PATIENT PI CKED UP FROM [facility] TO [facility].PATIENT STATED HE WANTS TO KILL HIMSELF AND OTHERS. OUT OF MEDS. DEPAKOTE/HALDOL/COGENTIN. HX: SCHIZO. NO MEDS; DENIES N/V/D; SKIN IS PINK/WARM/DRY; AAOX4; LUNGS CLEAR BL; HR EVEN AND REGULAR; PT DENIES ANY FEVER, CP, SOB, OR COUGH AT THIS TIME; PATIENT STATES PAIN OF 0/10 AT THIS TIME; VSS; PATIENT POSITIONED FOR COMFORT; HOB ELEVATED; BEDRAILS UP X2; BED DOWN. ER MD MADE AWARE OF PT STATUS.
[2017-09-16 19:13] LABS: BASOPHILS # (AUTO) 0.1 K/uL (0.00-0.22); BASOPHILS % (AUTO) 0.9 % (0.0-2.0); EOSINOPHILS # (AUTO) 0.1 K/uL (0-0.4); HEMATOCRIT 39.3 % (36-52); HEMOGLOBIN 13.5 g/dL (12.0-18.0); LYMPHOCYTES # (AUTO) 1.2 K/uL (2.0-11.5); LYMPHOCYTES % (AUTO) 18.4 % (20.5-51.1); MEAN CORPUSCULAR HEMOGLOBIN 30 pg (27-31); MEAN CORPUSCULAR HGB CONC 34 g/dL (33-37); MEAN CORPUSCULAR VOLUME 86 fL (80-94); MONOCYTES # (AUTO) 1.1 K/uL (0.8-1.0); MONOCYTES % (AUTO) 18.2 % (1.7-9.3); NEUTROPHILS # (AUTO) 3.8 K/uL (1.8-7.7); NEUTROPHILS % (AUTO) 61.5 % (42.2-75.2); PLATELET COUNT (AUTO) 241 K/uL (140-450); RED BLOOD CELL COUNT(AUTO) 4.56 MIL/uL (4.20-6.10); RED CELL DISTRIBUTION WIDTH 12.4 % (11.6-13.7); WHITE BLOOD COUNT (AUTO) 6.3 K/uL (4.8-10.8)
[2017-09-16 19:20] LABS: ANION GAP 9.7 (8-16); CARBON DIOXIDE 29.7 mmol/L (21-32); CHLORIDE 103 mmol/L (98-107); GFR ARICAN-AMERICAN 99 mL/min (>90); GLUCOSE 88 mg/dL (74-106); POTASSIUM 3.4 mmol/L (3.5-5.1); SODIUM SERUM 139 mmol/L (136-145); UREA NITROGEN, BLOOD 10 mg/dL (7-18)
[2017-09-16 19:27] LABS: ALBUMIN 3.3 g/dL (3.4-5.0); ASPARTATE AMINOTRANSFERASE 35 U/L (15-37); TOTAL BILIRUBIN 0.8 mg/dL (0.0-1.0)
[2017-09-16 19:29] LABS: ACETAMINOPHEN < 0.5 ug/ml (10-30); SALICYLATE < 2.8 mg/dL (2.8-20.0)
--- NOTE | 2017-09-16 19:45 | NUR ---
[place] pd at bedside
--- NOTE | 2017-09-16 20:16 | NUR ---
savannah HERNDON will contact [place] [employer] for reevaluation
--- NOTE | 2017-09-16 20:16 | NUR ---
[place] [employer] does not otilio 5150 criteria per [place] [employer].
--- NOTE | 2017-09-16 20:47 | NUR ---
Patient being evaluated by Dr. Wynne at bedside.
[2017-09-16 20:51] LABS: APPEARANCE,URINE CLEAR (CLEAR); BILIRUBIN,URINE NEGATIVE (NEGATIVE); BLOOD, URINE NEGATIVE (NEGATIVE); COLOR,URINE YELLOW (YELLOW); LEUKOCYTE ESTERASE ,URINE NEGATIVE (NEGATIVE); NITRITE, URINE NEGATIVE (NEGATIVE); PH,URINE 5.5 (5.0-9.0); UGLUCOSE NEGATIVE (NEGATIVE)
[2017-09-16 20:59] LABS: BARBITURATE, URINE NEG. ng/ml (NEG <=200); BENZODIAZEPINE, URINE NEG. ng/mL (NEG <=200); CANNABINOID, URINE NEG. ng/mL (NEG <=50); COCAINE, URINE NEG. ng/mL (NEG <=300); OPIATE, URINE NEG. ng/mL (NEG <=2000); PHENCYCLIDINE SCREEN,URINE NEG. ng/mL (NEG <=25)
[2017-09-16] MEDS ORDERED: OLANZapine 5 MG TAB ONE (21:42)
[2017-09-16] MEDS ORDERED: POTASSIUM CHLORIDE 10 MEQ TABER PO ONE (22:25)
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
[2017-09-16 22:51] VITALS: BP 100/57
--- NOTE | 2017-09-16 22:51 | NUR ---
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 AREN THOMPSON NOTIFTED.
--- NOTE | 2017-09-16 22:55 | NUR ---
Patient discharged with v/s stable. Written and verbal after care instructions given and explained. Patient alert, oriented and verbalized understanding of instructions. Ambulatory with steady gait. All questions addressed prior to discharge. ID band removed. Patient advised to follow up with PMD. Rx of SEROQUEL 100MG, ZYPREXA 20MG given. Patient educated on indication of medication including possible reaction and side effects. Opportunity to ask questions provided and answered.
[2017-09-17] MEDS ORDERED: OLANZapine 5 MG TAB PO SCH (09:00)
== END 2017-09-16 22:25 | disposition home or self-care (01) ==
LOC: MED 17:39
DX: Z04.6 Encounter for general psychiatric examination, requested by authority (principal); F15.10 Other stimulant abuse, uncomplicated; J45.909 Unspecified asthma, uncomplicated; Z88.1 Allergy status to other antibiotic agents
CPT/HCPCS: 36415; 71010; 80053; 80305; 81003; 84484; 85025; 99285; G0480; G0482; Q0092

== ENCOUNTER 2017-11-30 12:19 | Emergency (ER) | payer MEDICAID ==
[~2017-11-30] VITALS: Ht 180.3 cm; Wt 99.8 kg
[2017-11-30 12:22] VITALS: BP 117/77
[2017-11-30] MEDS ORDERED: KETOROLAC 30 MG/ML VIAL IM ONE (12:45)
[2017-11-30 13:38] VITALS: BP 145/72
--- NOTE | 2017-11-30 13:42 | NUR ---
PT STATED UNDERSTOOD ALL INFORMATION GIVEN UPON D/C HOME WELL PRESCRIPTIONS AND ALL FOLLOW UP CARE PT STATED DID NOT HAVE HIS CARD TO GET MEDICATION FROM [facility]. [facility] WAS INFORMED CAN US [facility] NUMBER AND THEY CAN LOOK UP PT INFORMATION PER HOSPITAL ADMITTING.
--- NOTE | 2017-11-30 13:44 | NUR ---
PT STATED WAS UNABLE TO VOID AT TIME OF URINE COLLECTION DR PONCE
== END 2017-11-30 13:42 | disposition home or self-care (01) ==
LOC: MED 12:19
DX: L03.314 Cellulitis of groin (principal); F15.90 Other stimulant use, unspecified, uncomplicated; J45.909 Unspecified asthma, uncomplicated; Z88.1 Allergy status to other antibiotic agents
CPT/HCPCS: 96372; 99283; J1885

== ENCOUNTER 2017-12-15 15:58 | Inpatient (IN) | payer MEDICAID ==
[~2017-12-15] VITALS: Ht 180.3 cm; Wt 88.0 kg
[2017-12-15 16:04] VITALS: BP 109/71
--- NOTE | 2017-12-15 16:14 | NUR ---
PT AMBULATES TO BED 4 DR KAN NOTIFIED
--- NOTE | 2017-12-15 16:20 | NUR ---
PATIENT PRESENTS TO ED WITH C/O HEARING VOICES, FEELS LIKE "HURTING HIMSELF"; HE SAID HE WANTED TO KILL HIMSELF BY JUMPING IN FRONT OF [place] LINE. ALSO C/O BL WRIST PAIN 07/13; METH USER, HX; ANXIETY . AAOX4 WITH EVEN AND STEADY GAIT; LUNGS CLEAR BL; HR EVEN AND REGULAR; PT DENIES ANY FEVER, CP, SOB, OR COUGH AT THIS TIME; DENIES N/V/D; SKIN IS PINK/WARM/DRY; VSS; PATIENT POSITIONED FOR COMFORT; HOB ELEVATED; BEDRAILS UP X2; BED DOWN. ER MD MADE AWARE OF PT STATUS.
--- NOTE | 2017-12-15 16:49 | NUR ---
DR. KAN EVALUATED PATIENT AT BEDSIDE FOR SUICIDAL IDEATION. PER DR. KAN,MARIELY STATED THAT HE IS HEARING VOICES AT DIFF. TIMES AND DIFF. THINGS TO KILL HIMSELF AND JUMP INFRONT OF A TRAIN, BUT NO PLANS AT THIS TIME. PATIENT WOULD LIKE TO BE BACK ON HIS MEDS. TO STABILIZE HIS PYSCHOSIS AND VOLUNTEERED TO BE ADMITTED TO ANY PSYCH. FACILITY. DR. KAN PLACED PATIENT ON 1798
[2017-12-15] MEDS ORDERED: OLANZapine 5 MG TAB PO SCH (17:00)
[2017-12-15 17:28] LABS: BASOPHILS # (AUTO) 0.1 K/uL (0.00-0.22); BASOPHILS % (AUTO) 1.9 % (0.0-2.0); EOSINOPHILS # (AUTO) 0.1 K/uL (0-0.4); EOSINOPHILS % (AUTO) 2.1 % (0.0-4.0); HEMATOCRIT 38.1 % (36-52); HEMOGLOBIN 12.6 g/dL (12.0-18.0); LYMPHOCYTES # (AUTO) 1.1 K/uL (2.0-11.5); LYMPHOCYTES % (AUTO) 14.8 % (20.5-51.1); MEAN CORPUSCULAR HEMOGLOBIN 28 pg (27-31); MEAN CORPUSCULAR HGB CONC 33 g/dL (33-37); MEAN CORPUSCULAR VOLUME 84 fL (80-94); MONOCYTES # (AUTO) 0.9 K/uL (0.8-1.0); MONOCYTES % (AUTO) 13.3 % (1.7-9.3); NEUTROPHILS # (AUTO) 4.9 K/uL (1.8-7.7); NEUTROPHILS % (AUTO) 67.9 % (42.2-75.2); PLATELET COUNT (AUTO) 395 K/uL (140-450); RED BLOOD CELL COUNT(AUTO) 4.56 MIL/uL (4.20-6.10); RED CELL DISTRIBUTION WIDTH 13.4 % (11.6-13.7); WHITE BLOOD COUNT (AUTO) 7.1 K/uL (4.8-10.8)
[2017-12-15 17:35] LABS: ANION GAP 13.4 (8-16); CARBON DIOXIDE 27.2 mmol/L (21-32); CHLORIDE 101 mmol/L (98-107); GFR ARICAN-AMERICAN 99 mL/min (>90); GLUCOSE 100 mg/dL (74-106); POTASSIUM 3.6 mmol/L (3.5-5.1); SODIUM SERUM 138 mmol/L (136-145); UREA NITROGEN, BLOOD 9 mg/dL (7-18)
[2017-12-15 17:40] LABS: ALBUMIN 2.9 g/dL (3.4-5.0); ASPARTATE AMINOTRANSFERASE 17 U/L (15-37); TOTAL BILIRUBIN 0.5 mg/dL (0.0-1.0)
[2017-12-15 17:42] LABS: SALICYLATE < 2.8 mg/dL (2.8-20.0)
[2017-12-15 17:43] LABS: ACETAMINOPHEN < 0.5 ug/ml (10-30)
--- NOTE | 2017-12-15 18:00 | NUR ---
PATIENT STATED TO ME THAT HE IS HEARING VOICES TELLING HIM TO KILL HIMSELF BUT NO SPEC. PLANS AT THIS TIME. HE WANTS HIS PSYCH. MEDS. PATIENT PUT IN A GOWN AND KEEP ROOM AND INVIRONMENT SAFE FOR THE PATIENT WITH MONITORING.
--- NOTE | 2017-12-15 19:21 | NUR ---
RECEIVED REPORT FROM CATHERINE WILKES. PT SLEEPING COMFORTABLY IN BED. ENVIRONMENT CHECKED, SAFETY MEASURES ENSURED, WILL CONTINUE TO MONITOR PT CLOSELY.
--- NOTE | 2017-12-15 20:02 | NUR ---
[facility] received patient referral. Called [facility], spoke with Maria Victoria. Faxed referral to for review and placement.
--- NOTE | 2017-12-15 21:15 | NUR ---
PT REFUSING TO GIVE URINE SAMPLE AT THIS TIME DESPITE EDUCATION, WILL CONTINUE TRY AND REINFORCE TEACHING.
--- NOTE | 2017-12-15 21:30 | NUR ---
Patient appears to be sleeping comfortably in bed. Vital Signs within normal limits. Respirations even and unlabored. Safety measures ensured, close monitoring maintained.
--- NOTE | 2017-12-15 21:47 | NUR ---
[facility] received call from [facility]. Spoke with Maria Victoria. Gave phone number to unit. Informed unit to expect call from [facility].
--- NOTE | 2017-12-15 22:21 | NUR ---
PT RESTING IN BED, NO S/S OF DISTRESS NOTED. PT INFORMED HE HAS BEING ACEPTED TO ANOTHER FACILITY AND WILL BE TRANSPORT THERE.
--- NOTE | 2017-12-15 22:25 | NUR ---
Cristofer perez in ED - 12/15/17 at 2350 by TREVOR ATTEMPTED TO OBTAIN CONSENT FROM PT TO TRANSFERED AND PT TUNRED AGRESSIVE TOWARDS ME HOLDING
--- NOTE | 2017-12-15 22:25 | NUR ---
ATTEMPTED TO OBTAIN CONSENT FROM PT FOR TRANSFER [facility] ANOTHER FACILITY AND PT TUNRNED AGRESSIVE TOWARDS ME HOLDING CLIPBOARD UP AND BITING HIS LIPS LIKE HE WAS GOING TO HIT ME. I STEPPED BACK AND NOTIFIED CHARGE NURSE AND ER MD.
--- NOTE | 2017-12-15 22:30 | NUR ---
ATTEMPTING TO EDUCATE PT REGARDING PLAN OF CARE AND POSSIBLE TRANSFER, PT STILL REFUSING TO COLLECT URINE SAMPLE, PT UPSET, AGITATED AND RESTLESS, PT CUSSING AND STATED "JUST KILL ME NOW."
--- NOTE | 2017-12-15 22:33 | NUR ---
DR SOLER AT BEDSIDE, PT STILL REFUSING TO COLLECT URINE SAMPLE DESPITE EDUCATION. PT AGREED TO HAVE IVF SO HE CAN COLLECT URINE. ORDERS PENDING.
[2017-12-15] MEDS ORDERED: NACL 0.9% 1,000 ML IV ONE (22:35)
[2017-12-15] MEDS ORDERED: HALOPERIDOL IM 5 MG/ML VIAL IVP ONE ×2 (22:35→22:45)
[2017-12-15] MEDS ORDERED: diphenhydrAMINE 50 MG/ML VIAL IVP ONE ×2 (22:35→22:45)
--- NOTE | 2017-12-15 22:45 | NUR ---
PT UPSET BUT AGREED AND WENT TO RESTROOM WITH URINAL AND WAS ABLE TO COLLECT VERY [place] URINE, SENT TO LAB BY MIXING MACHINE FEEDER.
--- NOTE | 2017-12-15 22:47 | NUR ---
PT REFUSING TO HAVE IV INSERTION OR IV MEDICATIONS DESPITE EDUCATION, PT STATED "I DON'T WANT THAT, THEY HURT." DR SOLER MADE AWARE.
[2017-12-15 23:08] LABS: BARBITURATE, URINE NEG. ng/ml (NEG <=200); BENZODIAZEPINE, URINE NEG. ng/mL (NEG <=200); CANNABINOID, URINE NEG. ng/mL (NEG <=50); COCAINE, URINE NEG. ng/mL (NEG <=300); OPIATE, URINE NEG. ng/mL (NEG <=2000); PHENCYCLIDINE SCREEN,URINE NEG. ng/mL (NEG <=25)
--- NOTE | 2017-12-15 23:15 | NUR ---
Pt has been becoming more and more beligerent and uncooperative as time goes by despite being voluntary. It was finally decided a 5150 hold was needed for the safety of the patient.
--- NOTE | 2017-12-15 23:18 | NUR ---
PT PLACED ON A [facility] HOLD BY TAN ROOM SUPERVISORCATHERINE GOINS
[2017-12-15] MEDS ORDERED: HALOPERIDOL IM 5 MG/ML VIAL IM ONE (23:35)
--- NOTE | 2017-12-15 23:40 | NUR ---
PT AGITATED AND RESTLESS, PT PLACED ON 4 POINT RESTRAINT WITH ROOM SERVICE SUPERVISOR AND SECURITY. ROOM SERVICE SUPERVISOR INSERTED IV 20G ON R HAND, ADMINISTERED DUE MEDS WITH EDUCATION.
--- NOTE | 2017-12-16 00:31 | NUR ---
PT IS RESTING COMFORTABLY, PT AGREED TO REMAIN CALM, L ARM RESTRAINT REMOVED, WILL MONITOR PT.
--- NOTE | 2017-12-16 00:48 | NUR ---
WAS NOTIFIED BY SUPERVISOR CAR AND YARD THAT URINE SAMPLE WAS NOT ENOUGH FOR UA, WILL INSTRUCT PT TO COLLECT MORE.
--- NOTE | 2017-12-16 00:52 | NUR ---
ALL RESTRAINTS REMOVED AT THIS TIME, PT IS RESTING COMFORTABLY, IS CALM AND NOT A HARM TO SELF AND OTHERS AT THIS TIME, WILL CONTINUE WITH CLOSE MONITORING.
[2017-12-16] MEDS ORDERED: NACL 0.9% 1,000 ML IV SCH (02:51)
[2017-12-16] MEDS ORDERED: DOCUSATE SODIUM 100 MG GELCAP PO PRN (02:55)
[2017-12-16] MEDS ORDERED: HYDROcodone/APAP 7.5/325 MG 1 TAB PO PRN (02:55)
[2017-12-16] MEDS ORDERED: ACETAMINOPHEN 325 MG TAB PO PRN (02:55)
[2017-12-16] MEDS ORDERED: ONDANSETRON 4 MG/2 ML VIAL IM/IVP PRN (02:55)
[2017-12-16] MEDS ORDERED: LORazepam 2 MG/ML VIAL IVP PRN (02:55)
[2017-12-16] MEDS ORDERED: MORPHINE SULFATE 2 MG/ML SYR IVP PRN (02:55)
--- NOTE | 2017-12-16 03:30 | NUR ---
PT ASLEEP, VS REMAIN STABLE. WILL CON TO MONITOR.
--- NOTE | 2017-12-16 03:36 | NUR ---
Patient will be admitted to care of DR GONZALES. Admited to MED SURG. Will go to room 109B. Belongings list completed. Report to TIMO MEDINA.
[2017-12-16 03:40] VITALS: BP 97/53
--- NOTE | 2017-12-16 03:40 | NUR ---
Admitted from ER TO MEDICAL SURGICAL UNIT , with chief complaint of UNABLE TO SLEEP, SUICIDAL IDEATION, 5150 ON HOLD, 57 y/o ,Male, Uncooperative, VERY DROWSY, WAS GIVEN HALDOL AND BENADRYL PER ER NURSE REPORT. IV SALINE LOCK AT THE RIGHT HAND G22, COVERED WITH KERLIX, PATIENT GETS COMBATIVE IN ER. REFUSED TO ANSWER QUESTIONS DURING ADMISSION. DATA MOSTLY OBTAINED FROM ER PHYSICIAN AND STAFF DOCUMENTATION. HEAD TO TOE ASSESSMENT DONE, WITH CHARGE NURSE JOHAN, NOTED TATTOOS ON BILATERAL UPPER EXTREMITIES. SKIN INTACT. NO APPEARANCE OF PAIN NOTED 0/10. SAFETY MEASURES ENFORCED. 1:1 SITTER MONITORING PATIENT. NO APPEARANCE OF PAIN NOTED 0/10. oriented to call light, bed, phone,television, bathroom, smoking policy,visiting hours, procedures, ID bracelet on. Belongings list checked.
--- NOTE | 2017-12-16 04:30 | NUR ---
REFUSED TO BE CONNECTED TO IV PUMP.
[2017-12-16 04:32] LABS: APPEARANCE,URINE CLEAR (CLEAR); BILIRUBIN,URINE NEGATIVE (NEGATIVE); BLOOD, URINE NEGATIVE (NEGATIVE); COLOR,URINE YELLOW (YELLOW); LEUKOCYTE ESTERASE ,URINE NEGATIVE (NEGATIVE); NITRITE, URINE NEGATIVE (NEGATIVE); UGLUCOSE NEGATIVE (NEGATIVE)
--- NOTE | 2017-12-16 04:32 | NUR ---
Patient's Plan of Care was discussed and reviewed with [place] MACHINE OPERATOR: Sanjuanita GUTIERREZ
[2017-12-16 05:03] LABS: RBC,URINE 0-5 (RARE) /HPF (0-5); WBC,URINE NONE SEEN /HPF (0-5)
--- NOTE | 2017-12-16 06:00 | NUR ---
AGREED TO HAVE AM LABS DRAWN BY ROUND CORNER CUTTER OPERATOR. CONTINUED SLEEPING. NEW 1:1 SITTER AT THE DOOR MONITORING PATIENT.
--- NOTE | 2017-12-16 07:00 | NUR ---
STILL SLEEPING COMFORTABLY. NEW SITTER MONITORING PATIENT. CONDITION REMAIN STABLE. WILL ENDORSE TO AM NURSE FOR CONTINUITY OF CARE.
--- NOTE | 2017-12-16 07:05 | NUR ---
RECEIVED PATIENT REPORT AT BEDSIDE. PATIENT IS SLEEPING AT THIS TIME BUT AROUSABLE TO NAME. PATIENT BREATHING WITHIN NORMAL LIMITS. NO SIGNS OF HALLUCINATIONS OR SUICIDAL IDEATION. PATIENT HAS 1:1 SITTER. WILL OFFER IV FLUIDS TO PATIENT WHEN HE WAKES UP. WILL CONTINUE TO MONITOR PATIENT.
--- NOTE | 2017-12-16 07:50 | NUR ---
PATIENT REFUSED TO HAVE HIS VITAL SIGNS TAKEN. PATIENT IS SLEEPING ON RIGHT LATERAL POSITION. BREATHING WITHIN NORMAL LIMITS. WILL CONTINUE TO MONITOR PATIENT.
[2017-12-16 08:00] VITALS: BP 90/51
[2017-12-16 08:36] LABS: PROTHROMBIN TIME 11.4 secs (10.8-13.4)
[2017-12-16] MEDS ORDERED: OLANZapine 5 MG TAB PO SCH (09:00)
[2017-12-16] MEDS: OLANZapine 5 MG TAB PO SCH (09:00)
--- NOTE | 2017-12-16 09:13 | NUR ---
PATIENT SLEEPING AT THIS TIME. NO SIGNS OF RESPIRATORY DISTRESS OR RESPIRATORY DEPRESSION. PATIENT HAS 1:1 SITTER. WILL CONTINUE TO MONITOR PATIENT.
[2017-12-16 09:33] LABS: MAGNESIUM 1.9 mg/dL (1.8-2.4); PHOSPHORUS 3.2 mg/dL (2.5-4.9)
[2017-12-16] MEDS: OXcarbazepine 150 MG TAB PO SCH ×2 (09:50→21:58)
--- NOTE | 2017-12-16 09:55 | NUR ---
PATIENT IS SLEEPING AT THIS TIME. ASKED PATIENT FOR PERMISSION TO TAKE VITAL SIGNS. ALSO OFFERED PATIENT'S MEDICATIONS. PATIENT DOES NOT WANT TO TAKE ANY OF THE MEDICATIONS AT THIS TIME. PATIENT SAYS, "LET ME SLEEP PLEASE!" PATIENT SEEMS AGITATED AT THIS TIME. WILL CONTINUE TO MONITOR PATIENT.
[2017-12-16 10:08] LABS: THYROID STIMULATING HORMONE 1.41 uIU/mL (0.34-3.74)
--- NOTE | 2017-12-16 11:48 | NUR ---
UNABLE TO ASSESS PATIENT AT THIS TIME. PATIENT IS SLEEPING AND DOES NOT WANT TO BE BOTHERED. PATIENT SAYS, "JUST LET ME SLEEP". PATIENT HAS 1:1 SITTER. WILL CONTINUE TO MONITOR PATIENT.
--- NOTE | 2017-12-16 12:34 | NUR ---
PATIENT HAS BEEN SCREENED AND CATEGORIZED LOW NUTRITION RISK. PATIENT WILL BE SEEN WITHIN 7 DAYS OF ADMISSION. 12/22/[address]
[2017-12-16 13:19] LABS: CHOL/HDL RATIO 2.3 (1-4.5)
[2017-12-16] MEDS ORDERED: LACTULOSE 20 GM/30 ML UDC PO SCH (14:00)
[2017-12-16 14:40] VITALS: BP 90/51
--- NOTE | 2017-12-16 14:47 | NUR ---
CM NOTE INITIAL REVIEW FAXED TO [facility] / FAX# [phone], ATTN: SOFIA #[phone]
--- NOTE | 2017-12-16 14:51 | NUR ---
PATIENT AWAKE IN BED. OFFERED FOOD TO PATIENT AND HE GOT TO THE SIDE OF THE BED RIGHT AWAY. PATIENT SAID, "GO AWAY. I DON'T WANT YOU HERE" AFTER I ASKED IF I CAN RETAKE HIS VITAL SIGNS. PATIENT IS AGITATED AT THIS TIME. WILL CONTINUE TO MONITOR PATIENT.
--- NOTE | 2017-12-16 15:30 | NUR ---
PATIENT RESTING IN BED. BREATHING IS SYMMETRICAL AND UNLABORED. NO SIGNS OF PAIN. WILL CONTINUE TO MONITOR PATIENT.
--- NOTE | 2017-12-16 17:35 | NUR ---
PATIENT SLEEPING IN BED RIGHT NOW. NO SIGNS OF PAIN AT THIS TIME. PATIENT'S BREATHING WITHIN NORMAL LIMITS. WILL CONTINUE TO MONITOR PATIENT.
--- NOTE | 2017-12-16 18:37 | NUR ---
PATIENT SLEEPING IN BED. PATIENT DID NOT EAT DINNER. PATIENT BREATHING WITHIN NORMAL LIMITS. NO SIGNS OF PAIN. WILL CONTINUE TO MONITOR PATIENT.
--- NOTE | 2017-12-16 19:27 | NUR ---
GAVE REPORT TO NIGHTSHIFT NURSE AT BEDSIDE. PATIENT IN STABLE CONDITION.
[2017-12-16] MEDS: LACTULOSE 20 GM/30 ML UDC PO SCH (21:58)
[2017-12-16] MEDS: QUEtiapine FUMARATE 100 MG TAB PO SCH (21:58)
--- NOTE | 2017-12-16 22:09 | NUR ---
WHEN PULLING OUT MEDICATIONS FOR PATIENT, I ACCIDENTALLY PULLED ONLY ONE OXCARBAZEPINE PILL INSTEAD OF 4. WAS GOING TO CALL FACULTY RESEARCH ASSISTANT TO HELP BUT PT REFUSED TO TAKE ANY MEDS SAYING "I JUST WANT TO BE LEFT ALONE." TRIED TO EXPLAIN RISKS AND BENEFITS OF TAKING MEDICATIONS BUT PT GOT IRRITABLE AND KEPT SAYING TO LEAVE HIM ALONE. RETURNED MEDICATIONS TO [facility], THE LACTULOSE WOULD NOT FIT, SO I PUT BACK WITH THE REST OF THE LACTULOSE IN THE DRAWER, RETURNED THE SEROQUEL AND RETURNED ONLY ONE OXCARBAZEPINE, SINCE I ONLY PULLED ONE OUT.
--- NOTE | 2017-12-16 23:15 | NUR ---
RECEIVED REPORT FROM DAY SHIFT RN, PT IS A/ALLY4, ON ROOM AIR. 20G IV TO RIGHT WRIST, SALINE LOCKED. PT AMBULATES WITH STEADY GAIT, SKIN IS INTACT. UPDATED BOARD. DISCUSSED PLAN OF CARE WITH PT, PT VERBALIZED UNDERSTANDING. VITAL SIGNS WITHIN NORMAL LIMITS. PT IN STABLE CONDITION, NO SIGNS OF DISTRESS NOTED. BED IN LOWEST POSITION, CALL LIGHT WITHIN REACH. WILL CONTINUE TO MONITOR.
[2017-12-17] VITALS: BP 104/61
--- NOTE | 2017-12-17 | NUR ---
VITAL SIGNS WITHIN NORMAL LIMITS. PT IN STABLE CONDITION, NO SIGNS OF DISTRESS NOTED. BED IN LOWEST POSITION, CALL LIGHT WITHIN REACH. WILL CONTINUE TO MONITOR.
--- NOTE | 2017-12-17 02:15 | NUR ---
PT IN STABLE CONDITION, NO SIGNS OF DISTRESS NOTED. BED IN LOWEST POSITION, CALL LIGHT WITHIN REACH. WILL CONTINUE TO MONITOR.
[2017-12-17] MEDS ORDERED: NACL 0.9% 1,000 ML IV SCH (02:51)
--- NOTE | 2017-12-17 04:35 | NUR ---
PT IN STABLE CONDITION, NO SIGNS OF DISTRESS NOTED. BED IN LOWEST POSITION, CALL LIGHT WITHIN REACH. WILL CONTINUE TO MONITOR.
[2017-12-17 06:21] LABS: T4 (THYROXINE) 6.1 ug/dL (4.5-12.0)
--- NOTE | 2017-12-17 06:40 | NUR ---
PT REFUSED BLOOD DRAW FOR LABS. 1:1 SITTER IN ROOM THROUGHOUT NIGHT. PT IN STABLE CONDITION.
--- NOTE | 2017-12-17 07:28 | NUR ---
ENDORSED PT IN STABLE CONDITION TO DAY SHIFT RN FOR CONTINUITY OF CARE.
--- NOTE | 2017-12-17 07:41 | NUR ---
RECEIVED REPORT FROM CATHERINE MARTIN. PATIENT ALERT, ORIENTED, WANTS TO SLEEP, DOESN'T WANT TO BE BOTHERED. VITAL SIGNS TAKEN. WITH SITTER AT BEDSIDE. NOT IN ANY DISTRESS NOTED. WILL CONTINUE TO MONITOR.
[2017-12-17 07:44] VITALS: BP 110/63
[2017-12-17] MEDS: LACTULOSE 20 GM/30 ML UDC PO SCH ×2 (09:15→21:00)
[2017-12-17] MEDS: OLANZapine 5 MG TAB PO SCH (09:17)
[2017-12-17] MEDS: OXcarbazepine 150 MG TAB PO SCH ×2 (09:58→21:00)
--- NOTE | 2017-12-17 10:11 | NUR ---
DUE MEDICATIONS GIVEN TO THE PATIENT ABLE TO TAKE IT, DOESN'T WANT TO BE BOTHER, HE SAID HE WANTS TO SLEEP.
--- NOTE | 2017-12-17 10:30 | NUR ---
[facility] AND HE WANTS ME TO ASK THE PATIENT IF HE WANTS VOLUNTARY FOR PSYCH PLACEMENT, NOTIFIED DR. RINCON AND ANGELIC, BREADMAN. ANGELIC SAID SHE WILL CALL ART.
--- NOTE | 2017-12-17 11:45 | NUR ---
CM NOTE CONCURRENT REVIEW FAXED TO [facility] / FAX# [phone], ATTN: SOFIA #[phone] AND TO [facility] [phone]
--- NOTE | 2017-12-17 12:56 | NUR ---
KEEP NPO AT THIS TIME FOR ULTRASOUND, WILL CONTINUE TO MONITOR.
--- NOTE | 2017-12-17 13:32 | NUR ---
Called [facility] and spoke with Breann. No beds at this time. Called [facility] and spoke with Manuel. No available beds.
--- NOTE | 2017-12-17 14:13 | NUR ---
Faxed Facilities: [facility], [facility], and [facility].
--- NOTE | 2017-12-17 14:15 | NUR ---
I attempted to meet with patient during screen to discus, and confirm his information. As well asses for Patients needed services upon discharge. Patient was awake , alert but unwilling to provide any information and cooperate with these conventional mortgage underwriter. Patient will not respond at all. These conventional mortgage underwriter ended meeting and walk-out of the room.
--- NOTE | 2017-12-17 15:00 | NUR ---
Called [facility] and spoke with Santiago. Possible beds, packet faxed.
[2017-12-17 16:00] VITALS: BP 88/52
--- NOTE | 2017-12-17 16:45 | NUR ---
REPORT GIVEN TO CATHERINE MURRAY FOR CONTINUITY OF CARE. IN STABLE CONDITION.
--- NOTE | 2017-12-17 19:30 | NUR ---
RECEIVED REPORT FROM DAY SHIFT RN, PT RESPONDS TO NAME BUT DOESN'T WANT TO BE BOTHERED, HE IS ON ROOM AIR. 20G IV TO RIGHT WRIST, SALINE LOCKED. PT AMBULATES WITH STEADY GAIT, SKIN IS INTACT. PT REFUSED VITAL SIGNS. PT IN STABLE CONDITION, NO SIGNS OF DISTRESS NOTED. BED IN LOWEST POSITION. WILL CONTINUE TO MONITOR.
[2017-12-17] MEDS: QUEtiapine FUMARATE 100 MG TAB PO SCH (21:00)
--- NOTE | 2017-12-17 21:15 | NUR ---
PT REFUSED MEDICATIONS, TRIED TO EXPLAIN RISKS AND BENEFITS OF TAKING MEDICATIONS BUT PT GOT IRRITABLE AND KEPT SAYING TO LEAVE HIM ALONE.
[2017-12-18] VITALS: BP 90/50
--- NOTE | 2017-12-18 | NUR ---
SLIGHTLY DECREASED BP 90/50 OTHERWISE VITAL SIGNS WITHIN NORMAL LIMITS. PT IN STABLE CONDITION, NO SIGNS OF DISTRESS NOTED. BED IN LOWEST POSITION, CALL LIGHT WITHIN REACH. WILL CONTINUE TO MONITOR.
--- NOTE | 2017-12-18 02:00 | NUR ---
PT IN STABLE CONDITION, NO SIGNS OF DISTRESS NOTED. BED IN LOWEST POSITION, CALL LIGHT WITHIN REACH. WILL CONTINUE TO MONITOR.
--- NOTE | 2017-12-18 04:28 | NUR ---
PT IN STABLE CONDITION, NO SIGNS OF DISTRESS NOTED. BED IN LOWEST POSITION, CALL LIGHT WITHIN REACH. WILL CONTINUE TO MONITOR.
--- NOTE | 2017-12-18 07:28 | NUR ---
PT ENDORSED TO DAY SHIFT RN IN STABLE CONDITION FOR CONTINUITY OF CARE.
--- NOTE | 2017-12-18 07:29 | NUR ---
RECEIVED REPORT FROM TOWBOAT PILOT NURSE. PATIENT LYING DOWN IN BED SLEEPING, AROUSABLE BY VOICE. NO DISTRESS NOTED. RESPIRATIONS EVEN, UNLABORED, ON ROOM AIR. DENIES ANY PAIN AT THIS TIME. AAOX3, CALM, COOPERATIVE, SKIN COLOR APPROPRIATE TO ETHNICITY, WARM TO TOUCH. SKIN IS INTACT, TATTOOS NOTED THROUGHOUT BODY. IV SITE INTACT, PATENT, ON SALINE LOCK DUE TO PATIENT REFUSING IVF. LUNGS CTA ON ALL LOBES. ABDOMEN SOFT, NON-DISTENDED. REVIEWED PLAN OF CARE WITH PATIENT. PATIENT VERBALIZED UNDERSTANDING. SAFETY MEASURES IN PLACE, CALL LIGHT WITHIN REACH, 1:1 SITTER AT BEDSIDE. WILL CONTINUE TO MONITOR.
[2017-12-18 08:00] VITALS: BP 103/65
--- NOTE | 2017-12-18 09:00 | NUR ---
MD AT BEDSIDE REVIEWING PLAN OF CARE WITH PATIENT. WILL CONTINUE TO MONITOR.
[2017-12-18] MEDS: LACTULOSE 20 GM/30 ML UDC PO SCH ×2 (09:59→21:17)
[2017-12-18] MEDS: OXcarbazepine 150 MG TAB PO SCH ×2 (09:59→21:14)
--- NOTE | 2017-12-18 10:04 | NUR ---
PATIENT LYING IN BED SLEEPING, AROUSABLE BY VOICE. NO DISTRESS NOTED. DENIES ANY PAIN AT THIS TIME. PATIENT IS DROWSY, HOWEVER, IS ABLE TO TAKE HIS SCHEDULED MEDICATIONS. SAFETY MEASURES IN PLACE, 1:1 SITTER AT BEDSIDE. WILL CONTINUE TO MONITOR.
[2017-12-18] MEDS: OLANZapine 5 MG TAB PO SCH (11:43)
--- NOTE | 2017-12-18 11:50 | NUR ---
PATIENT SITTING IN BED EATING BREAKFAST TRAY. SCHEDULED MEDICATION DUE GIVEN. DENIES ANY PAIN AT THIS TIME. SAFETY MEASURES IN PLACE, 1:1 SITTER AT BEDSIDE. WILL CONTINUE TO MONITOR.
--- NOTE | 2017-12-18 13:59 | NUR ---
PATIENT LYING IN BED SLEEPING, AROUSABLE BY VOICE. NO DISTRESS NOTED. DENIES ANY PAIN. SAFETY MEASURES IN PLACE, CALL LIGHT WITHIN REACH. WILL CONTINUE TO MONITOR.
[2017-12-18 16:00] VITALS: BP 107/60
--- NOTE | 2017-12-18 17:55 | NUR ---
Contacted the following facilities in attempt to find bed placement, no beds available at this time: [facility], [facility], [facility], [facility], [facility], [facility], [facility].
--- NOTE | 2017-12-18 19:35 | NUR ---
GAVE REPORT TO INSOLE AND OUTSOLE PREPARER NURSE FOR CONTINUITY OF CARE. PATIENT IN STABLE CONDITION.
--- NOTE | 2017-12-18 19:35 | NUR ---
RECEIVED PATIENT ASLEEP ON BED. BED IN LOW POSITION,CALL LIGHT WITHIN REACH. BED ALARM ON. PATIENT 1:1 SITTER. WILL CONTINUE TO MONITOR.
[2017-12-18 20:00] VITALS: BP 90/48
--- NOTE | 2017-12-18 21:05 | NUR ---
PATIENT SEEN ASLEEP ON BED WITH SITTER WATCHING THE PATIENT. SUICIDAL PRECAUTION IMPLEMENTED. LOW BED POSITION, BED ALARM ON, CALL LIGHT WITHIN REACH.
[2017-12-18] MEDS: QUEtiapine FUMARATE 100 MG TAB PO SCH (21:15)
--- NOTE | 2017-12-19 01:25 | NUR ---
PATIENT RESTING ON BED, ASLEEP BUT AROUSABLE. SITTER SEEN IN CONSTANT WATCH THE PATIENT FOR SUICIDAL PRECAUTION.
--- NOTE | 2017-12-19 03:05 | NUR ---
PATIENT ASLEEP ON BED. PATIENT 1:1 SITTER. SUICIDAL PRECAUTION IMPLEMENTED.
--- NOTE | 2017-12-19 06:00 | NUR ---
PATIENT LYING IN BED ASLEEP. PATIENT QUIET ALL NIGHT WITH SITTER WATCHING.
--- NOTE | 2017-12-19 07:10 | NUR ---
PATIENT SLEEPING ENDORSED TO MALU FOR CONTINUITY OF CARE. PATIENT IS IN STABLE CONDITION.
--- NOTE | 2017-12-19 07:11 | NUR ---
RECEIVED REPORT FROM PERMASTONE INSTALLER NURSE. PATIENT LYING DOWN IN BED SLEEPING, AROUSABLE BY VOICE. NO DISTRESS NOTED. RESPIRATIONS EVEN, UNLABORED, ON ROOM AIR. DENIES ANY PAIN AT THIS TIME. AAOX3, CALM, COOPERATIVE, SKIN COLOR APPROPRIATE TO ETHNICITY, WARM TO TOUCH. SKIN IS INTACT, TATTOOS NOTED THROUGHOUT BODY. NO IV SITE DUE TO PATIENT REFUSING IV SITE TO REMAIN IN PLACE. LUNGS CTA ON ALL LOBES. ABDOMEN SOFT, NON-DISTENDED. REVIEWED PLAN OF CARE WITH PATIENT. PATIENT VERBALIZED UNDERSTANDING. SAFETY MEASURES IN PLACE, CALL LIGHT WITHIN REACH, 1:1 SITTER AT BEDSIDE. WILL CONTINUE TO MONITOR.
[2017-12-19 08:00] VITALS: BP 98/62
[2017-12-19] MEDS: LACTULOSE 20 GM/30 ML UDC PO SCH ×2 (09:00→21:12)
[2017-12-19] MEDS: OLANZapine 5 MG TAB PO SCH ×2 (09:00→14:58)
[2017-12-19] MEDS: OXcarbazepine 150 MG TAB PO SCH ×2 (09:00→21:13)
--- NOTE | 2017-12-19 09:00 | NUR ---
PATIENT LYING DOWN IN BED SLEEPING, AROUSABLE BY VOICE. DROWSY. NO DISTRESS NOTED. DENIES ANY PAIN AT THIS TIME. REFUSES MEDICATIONS AT THIS TIME. WILL TRY AGAIN LATER. WILL CONTINUE TO MONITOR.
--- NOTE | 2017-12-19 10:14 | NUR ---
PATIENT LYING IN BED SLEEPING, AROUSABLE BY VOICE. DROWSY. STILL CONTINUES TO REFUSE MORNING MEDICATIONS. SAFETY MEASURES IN PLACE, CALL LIGHT WITHIN REACH. WILL CONTINUE TO MONITOR.
--- NOTE | 2017-12-19 12:14 | NUR ---
PATIENT LYING IN BED SLEEPING, AROUSABLE BY VOICE AND SHAKING. DROWSY. NO DISTRESS NOTED. DENIES ANY PAIN. CONDITION UNCHANGED. SAFETY MEASURES IN PLACE, 1:1 SITTER AT BEDSIDE. WILL CONTINUE TO MONITOR.
--- NOTE | 2017-12-19 14:42 | NUR ---
PATIENT SITTING IN BED WITH BREAKFAST AND LUNCH TRAY IN FRONT. PATIENT REQUESTS MORNING MEDICATIONS TO BE ADMINISTERED AT THIS TIME. WILL UNDO AND GIVE MORNING MEDICATIONS. SAFETY MEASURES IN PLACE, CALL LIGHT WITHIN REACH. WILL CONTINUE TO MONITOR.
--- NOTE | 2017-12-19 15:01 | NUR ---
SCHEDULED 9 AM MEDICATIONS GIVEN PER PATIENT REQUEST. SAFETY MEASURES IN PLACE, CALL LIGHT WITHIN REACH. WILL CONTINUE TO MONITOR.
[2017-12-19 16:00] VITALS: BP 100/65
--- NOTE | 2017-12-19 16:42 | NUR ---
PATIENT AMBULATED TO BATHROOM AND BACK TO BED. NO DISTRESS NOTED. DENIES ANY PAIN. MOOD IS AGITATED. SAFETY MEASURES IN PLACE, CALL LIGHT WITHIN REACH. WILL CONTINUE TO MONITOR.
--- NOTE | 2017-12-19 17:03 | NUR ---
PATIENT WISHES TO USE THE PHONE TO MAKE A CALL TO HIS FRIEND. REQUEST ACCEPTED AND MADE A CALL TO HIS FRIEND USING NURSE PHONE. NO DISTRESS NOTED. DENIES ANY PAIN. SAFETY MEASURES IN PLACE, 1:1 SITTER AT BEDSIDE.
--- NOTE | 2017-12-19 17:45 | NUR ---
PATIENT HAD A SPONGE BATH AT BEDSIDE SINK. NO DISTRESS NOTED. DENIES ANY PAIN. PATIENT BACK TO BED AND ATE LUNCH TRAY. SAFETY MEASURES IN PLACE, 1:1 SITTER AT BEDSIDE. WILL CONTINUE TO MONITOR.
--- NOTE | 2017-12-19 18:49 | NUR ---
PATIENT LYING IN BED SLEEPING, AROUSABLE BY VOICE. NO DISTRESS NOTED. DENIES ANY PAIN. SAFETY MEASURES IN PLACE, CALL LIGHT WITHIN REACH. WILL CONTINUE TO MONITOR .
--- NOTE | 2017-12-19 19:18 | NUR ---
GAVE REPORT TO CUSTOMER CARE VOICE CONSULTANT NURSE FOR CONTINUITY OF CARE. PATIENT IN STABLE CONDITION.
--- NOTE | 2017-12-19 19:19 | NUR ---
RECD. RESTING IN BED, EYES CLOSED. A/OX3, RESPIRATION EVEN AND UNLABORED. NO IV LINE. TRIED TO WAKEN UP BY TALKING TO PATIENT BUT IGNORES QUESTIONS. AFTER FEW MINUTES OF TRYING TO TALK WITH PATIENT, FINALLY SAID YES ON A YES OR NO QUESTION BUT ONLY HALF OPENED EYES AND CONTINUE SLEEPING. WHEN ASKED IF HE HAS INTENTION TO HURT HIMSELF, DID NOT ANSWER .PLAN OF CARE DISCUSSED. NEEDS REINFORCEMENT. NO APPEARANCE OF PAIN NOTED 0/10.
--- NOTE | 2017-12-19 21:00 | NUR ---
Patient's Plan of Care was discussed and reviewed with TALENT PARTNER: CAROL GUTIERREZ
[2017-12-19] MEDS: QUEtiapine FUMARATE 100 MG TAB PO SCH (21:12)
--- NOTE | 2017-12-19 21:12 | NUR ---
AWAKEN TO GIVE MEDICATION FOR THE NIGHT, SEEMS TO IGNORE FOR A WHILE AND WHEN ASKED AGAIN, STATED "SHUT UP" BUT DRINK MEDICATION WHEN OFFERED AGAIN.
--- NOTE | 2017-12-19 22:00 | NUR ---
IN BED, SLEEPING, OCCASIONALLY TURNS TO SIDES.
[2017-12-20] VITALS: BP 97/47
--- NOTE | 2017-12-20 01:00 | NUR ---
made several calls to facilities , at this time no beds are available , Alayna from [facility] stated , charisse in the morning , she confirmed they still have paper work , [facility] ,and [facility] has no vacancy at this time.
--- NOTE | 2017-12-20 03:20 | NUR ---
WARM BLANKET PUT ON PATIENT, STILL SLEEPING IN BED.
--- NOTE | 2017-12-20 06:58 | NUR ---
SLEEPING MOST OF THE TIME DURING SHIFT. NO UNUSUAL BEHAVIOR NOTED. SAFETY MAINTAINED. WILL ENDORSE TO AM NURSE FOR CONTINUITY OF CARE.
--- NOTE | 2017-12-20 07:15 | NUR ---
ENDORSED TO CATHERINE MEANS FOR CONTINUITY OF CARE.
--- NOTE | 2017-12-20 07:17 | NUR ---
RECEIVED REPORT FROM STEAM CLEANER NURSE. PATIENT IS AAOX3, RESPIRATORY EFFORT IS EVEN AND UNLABORED. HAS NO SIGNS AND SYMPTOMS OF ACUTE DISTRESS NOTED AT THIS TIME. NO IV LINE. DISCUSSED PLAN OF CARE WITH PATIENT BUT HE REFUSES TO RESPOND TO ME AFTER SEVERAL ATTEMPTS OF CALLING NAME. BED IS IN LOWEST POSITION, SIDE RAILS UP X2, HAS A 1:1 SITTER. ASKED IF HE HAS ANY SUICIDAL IDEATION AND CONTINUES TO IGNORE ME. WILL CONTINUE TO MONITOR.
[2017-12-20 08:00] VITALS: BP 90/45
[2017-12-20] MEDS: OLANZapine 5 MG TAB PO SCH (09:00)
[2017-12-20] MEDS: LACTULOSE 20 GM/30 ML UDC PO SCH ×2 (09:00→21:19)
[2017-12-20] MEDS: OXcarbazepine 150 MG TAB PO SCH ×2 (09:00→21:18)
--- NOTE | 2017-12-20 09:59 | NUR ---
CALLED PATIENTS NAME SEVERAL TIMES, KEPT IGNORING ME. I PULLED THE COVER OFF FROM OVER HIS HEAD AND HE STATED THAT I WAS HURTING HIS EARS FROM TALKING TOO LOUD. WHEN ASKED IF HE WANTED TO TAKE HIS MEDICATIONS HE NODDED YES, AND THEN NO. ASKED AGAIN IF HE WANTED TO TAKE HIS MEDICATIONS AND HE RESUMED TO IGNORE ME. WILL CONTINUE TO MONITOR. SITTER AT THE DOOR.
--- NOTE | 2017-12-20 12:01 | NUR ---
CM NOTE CONCURRENT REVIEW FAXED TO [facility] / FAX# [phone], ATTN: [facility] #[phone] AND TO [facility] [phone] # [phone]
[2017-12-20 16:00] VITALS: BP 122/82
--- NOTE | 2017-12-20 19:41 | NUR ---
ENDORSED PATIENT TO RUNNER MAN NURSE FOR CONTINUITY OF CARE. PATIENT IN STABLE CONDITION.
--- NOTE | 2017-12-20 19:50 | NUR ---
RECD. REPORT FROM CATHERINE AVELAR. PATIENT RESTING IN BED WITH EYES CLOSED BUT ANSWERS QUESTIONS BUT DOES NOT OPEN EYES. A/OX3. RESPIRATION EVEN AND UNLABORED. ON 1:1 SITTER NEAR DOOR. WHEN INQUIRED IF HE HAS INTENTION OF HURTING HIMSELF, STATED NO. REQUESTED FOR SANDWICH. PLAN OF CARE FOR THE SHIFT DISCUSSED. JUST NODS HEAD. DENIES PAIN 0/10.
--- NOTE | 2017-12-20 20:00 | NUR ---
Patient's Plan of Care was discussed and reviewed with MIDDLE SCHOOL TEACHER: ARIE GUTIERREZ.
[2017-12-20] MEDS: QUEtiapine FUMARATE 100 MG TAB PO SCH (21:19)
--- NOTE | 2017-12-20 21:19 | NUR ---
DUE PO MEDICATIONS GIVEN. WENT BACK TO SLEEP AFTER TAKING MEDS.
[2017-12-21] VITALS: BP 102/56
--- NOTE | 2017-12-21 | NUR ---
SLEEPING COMFORTABLY IN BED.
--- NOTE | 2017-12-21 06:57 | NUR ---
SLEEP MOST OF THE TIME DURING SHIFT. SAFETY MAINTAINED. NEW SITTER NEAR DOOR MONITORING PATIENT. WILL ENDORSE TO AM NURSE FOR CONTINUITY OF CARE.
--- NOTE | 2017-12-21 07:10 | NUR ---
ENDORSED TO CATHERINE MEANS FOR CONTINUITY OF CARE.
--- NOTE | 2017-12-21 07:11 | NUR ---
RECEIVED REPORT FROM PARKS AND RECREATION MANAGER NURSE. PATIENT IS AAOX3, RESPIRATORY EFFORT IS EVEN AND UNLABORED. HAS NO SIGNS AND SYMPTOMS OF ACUTE DISTRESS NOTED AT THIS TIME. NO IV LINE. DISCUSSED PLAN OF CARE WITH PATIENT BUT HE REFUSES TO RESPOND TO ME AFTER SEVERAL ATTEMPTS OF CALLING NAME. BED IS IN LOWEST POSITION, SIDE RAILS UP X2, HAS A 1:1 SITTER. ASKED IF HE HAS ANY SUICIDAL IDEATION AND CONTINUES TO IGNORE ME. WILL CONTINUE TO MONITOR.
[2017-12-21 08:00] VITALS: BP 104/78
[2017-12-21] MEDS: LACTULOSE 20 GM/30 ML UDC PO SCH ×2 (09:19→20:16)
[2017-12-21] MEDS: OXcarbazepine 150 MG TAB PO SCH ×2 (09:19→20:15)
[2017-12-21] MEDS: OLANZapine 5 MG TAB PO SCH (09:20)
--- NOTE | 2017-12-21 10:19 | NUR ---
CM NOTE CONCURRENT REVIEW FAXED TO [facility] / FAX# [phone], ATTN: SOFIA #[phone] AND TO [facility] [phone] # [phone]
--- NOTE | 2017-12-21 16:00 | NUR ---
PATIENT REFUSED TO LET ME DO HIS VITAL SIGNS
--- NOTE | 2017-12-21 19:15 | NUR ---
ENDORSED PATIENT TO APPLIANCE MECHANIC NURSE FOR CONTINUITY OF CARE. PATIENT IN STABLE CONDITION.
--- NOTE | 2017-12-21 19:16 | NUR ---
RECEIVED BEDSIDE REPORT FROM DAY SHIFT NURSE DIANA ALEXANDER, PT STABLE, NO DISTRESS NOTED, INITIAL ASSESSMENT DONE, ALL SAFETY PRECAUTION MET, 1:1 SITTER BY BEDSIDE. WILL CONTINUE TO MONITOR.
[2017-12-21] MEDS: QUEtiapine FUMARATE 100 MG TAB PO SCH (20:15)
--- NOTE | 2017-12-21 20:16 | NUR ---
DUE MEDICATION GIVEN, PT COOPERATIVE, PT TOLERATED WELL, NO DISTRESS NOTED, 1:1 SITTER AT BEDSIDE, WILL CONTINUE TO MONITOR.
--- NOTE | 2017-12-21 22:20 | NUR ---
CHECKED ON PT, PT SLEEPING, NO DISTRESS NOTED, 1:1 SITTER BY BEDSIDE, WILL CONTINUE TO MONITOR.
[2017-12-22] VITALS: BP 95/63
--- NOTE | 2017-12-22 00:01 | NUR ---
CHECKED ON PT, PT SLEEPING, NO DISTRESS NOTED, CALL LIGHT WITHIN REACH, WILL CONTINUE TO MONITOR.
--- NOTE | 2017-12-22 00:48 | NUR ---
spoke to pt. nurse faxed packet to [facility] will call back when bed opens. no vacancy at [facility] at this time or
--- NOTE | 2017-12-22 00:51 | NUR ---
No vacancy at [facility] at this time .
--- NOTE | 2017-12-22 00:54 | NUR ---
TALKED TO JIMENA FROM THE [facility], ASKED TO FAX [phone] HOLD. 5150 HOLD FAXED, AWAITING CONFIRMATION. Addendum: 12/22/17 at 0056 by Urmila Gonzalez RN FAXED TO NUMBER [phone]
--- NOTE | 2017-12-22 02:59 | NUR ---
PT SLEEPING, CALM AND COOPERATIVE, NO DISTRESS NOTED, 1:1 SITTER BY BEDSIDE, WILL CONTINUE TO MONITOR.
--- NOTE | 2017-12-22 06:00 | NUR ---
PT SLEEPING, NO DISTRESS NOTED, 1:1 SITTER BY BEDSIDE, WILL CONTINUE TO MONITOR.
[2017-12-22 06:26] LABS: BASOPHILS # (AUTO) 0.2 K/uL (0.00-0.22); BASOPHILS % (AUTO) 2.8 % (0.0-2.0); EOSINOPHILS # (AUTO) 0.1 K/uL (0-0.4); EOSINOPHILS % (AUTO) 2.4 % (0.0-4.0); HEMOGLOBIN 13.5 g/dL (12.0-18.0); LYMPHOCYTES # (AUTO) 1.3 K/uL (2.0-11.5); LYMPHOCYTES % (AUTO) 22.1 % (20.5-51.1); MEAN CORPUSCULAR HEMOGLOBIN 28 pg (27-31); MEAN CORPUSCULAR HGB CONC 33 g/dL (33-37); MEAN CORPUSCULAR VOLUME 85 fL (80-94); MONOCYTES # (AUTO) 0.6 K/uL (0.8-1.0); MONOCYTES % (AUTO) 10.9 % (1.7-9.3); NEUTROPHILS # (AUTO) 3.5 K/uL (1.8-7.7); NEUTROPHILS % (AUTO) 61.8 % (42.2-75.2); PLATELET COUNT (AUTO) 342 K/uL (140-450); RED BLOOD CELL COUNT(AUTO) 4.85 MIL/uL (4.20-6.10); RED CELL DISTRIBUTION WIDTH 13.4 % (11.6-13.7); WHITE BLOOD COUNT (AUTO) 5.8 K/uL (4.8-10.8)
[2017-12-22 07:03] LABS: ANION GAP 10.8 (8-16); CREATININE 0.9 mg/dL (0.7-1.3); POTASSIUM 3.8 mmol/L (3.5-5.1)
[2017-12-22 07:19] LABS: MAGNESIUM 2.1 mg/dL (1.8-2.4); PHOSPHORUS 3.5 mg/dL (2.5-4.9)
--- NOTE | 2017-12-22 07:21 | NUR ---
ENDORSED PLAN OF CARE TO DAY SHIFT NURSE [place] RN, PT STABLE, NO DISTRESS NOTED, CALL LIGHT WITHIN REACH.
--- NOTE | 2017-12-22 07:22 | NUR ---
RECEIVED REPORT FROM FABRICATOR ASSEMBLER METAL [employer]ODUCTS NURSE AT BEDSIDE FOR CONTINUITY OF CARE. PT STABLE AND SLEEPING, NO DISTRESS NOTED, SAFETY PRECAUTION IN PLACE, 1:1 SITTER BY BEDSIDE. WILL CONTINUE TO MONITOR PATIENT.
[2017-12-22 08:00] VITALS: BP 100/57
[2017-12-22] MEDS: LACTULOSE 20 GM/30 ML UDC PO SCH (09:45)
[2017-12-22] MEDS: OLANZapine 5 MG TAB PO SCH (09:46)
[2017-12-22] MEDS: OXcarbazepine 150 MG TAB PO SCH (09:47)
--- NOTE | 2017-12-22 09:49 | NUR ---
ADMINISTERED MORNING MEDICATIONS. PATIENT TOLERATED THEM WELL. PATIENT NOW RESTING IN BED, NO SIGNS OF DISTRESS NOTED. PATIENT DENIES PAIN. SAFETY PRECAUTION IN PLACE, 1:1 SITTER AT BEDSIDE. WILL CONTINUE TO MONITOR PATIENT.
--- NOTE | 2017-12-22 10:00 | NUR ---
DR. PINEDA IN TO SEE THE PATIENT. WILL AWAIT HIS ASSESSMENT AND EVALUATION.
--- NOTE | 2017-12-22 10:37 | NUR ---
PATIENT AMBULATED TO GO SHOWER, 1:1 SITTER BY SIDE. WILL CONTINUE TO MONITOR PATIENT.
--- NOTE | 2017-12-22 11:15 | NUR ---
I met with Patient to discuss his discharge for today and to provide him with resources and information. Patient was awake and alert, stated wanting to get resources provided. I explained to patient about shelters and discuss about the [facility] intermediate and time to be there (3:00 PM) to assure that he has a bed. Patient stated only wanting to go to shelters in the [place]. I then provided him with a intermediate list, and other resources for low- cost health care providers list, substance abuse treatment programs and a discount medication card.
--- NOTE | 2017-12-22 11:30 | NUR ---
CALLED [facility]. THE PATIENT'S CHOICE FACILITY TO BE DISCHARGED TO. SPOKE TO DENIS, THEY REQUESTED VERIFICATION OF HOMELESS PAPERWORK SENT OVER ABOUT THE PATIENT IN ORDER TO SEE IF THEY HAVE PLACEMENT FOR HIM. PATIENT INFORMED OF THIS, VERBALIZED UNDERSTANDING. PATIENT CURRENTLY IN BED RESTING, NO SIGNS OF DISTRESS NOTED. PATIENT DENIES PAIN. PATIENT NO LONGER ON 5150 HOLD. WILL CONTINUE TO MONITOR PATIENT.
--- NOTE | 2017-12-22 12:40 | NUR ---
CM NOTE CONCURRENT REVIEW FAXED TO [facility] / FAX# [phone], ATTN: SOFIA #[phone] AND TO [facility] [phone] PH# [phone] SPOKE WITH TERRIE OF [facility] PH# [phone] TO INFORM THEM THAT PATIENT HAS BEEN CLEARED BY PSYCH
--- NOTE | 2017-12-22 14:27 | NUR ---
12/22/17 RD INITIAL ASSESSMENT COMPLETED PLEASE REFER TO NUTRITION ASSESSMENT UNDER CARE ACTIVITY FOR ESTIMATED NUTRITIONAL NEEDS. 1. CONTINUE MECHANICAL SOFT DIET TOLERATED 2. ENCOURAGE INCREASED PO INTAKES 3. RD TO FOLLOW-UP 5-7 DAYS, LOW RISK NAVIN HANSON RD
--- NOTE | 2017-12-22 15:35 | NUR ---
SPOKE TO DENIS FROM [facility], SHE SAID PLACEMENT FOR PATIENT BUT NOT UNTIL 10:00 AM TOMORROW. RELAYED THIS INFORMATION TO THE PATIENT. HE DOES NOT WANT TO CALL OTHER FACILITIES. BECAUSE IT IS TOO LATE. PATIENT RESTING IN BED, NO SIGNS OF DISTRESS NOTED. WILL CONTINUE TO MONITOR AND UPDATE PATIENT ON PLAN OF CARE.
--- NOTE | 2017-12-22 16:35 | NUR ---
DISCHARGE INSTRUCTIONS AND EDUCATION GIVEN TO PATIENT. PATIENT VERBALIZED UNDERSTANDING BUT REFUSES TO SIGN ANY PAPERWORK BECAUSE HE DOES NOT WANT TO BE DISCHARGE AT THIS TIME. RESOURCE PACKETS WERE GIVEN TO PATIENT, BUS PASS OFFERED. PATIENT ACCEPTED BUT DOES NOT WANT TO BE DISCHARGED. SPOKE TO HIM ABOUT PLACEMENT OPPORTUNITY AT [facility] AT 10:00 AM TOMORROW, 12/22/17. PATIENT VERBALIZED UNDERSTANDING.
--- NOTE | 2017-12-22 17:30 | NUR ---
SECURITY CAME AND GAVE PATIENT ALL OF HIS BELONGINGS. PATIENT CURRENTLY EATING DINNER. NO SIGNS OF DISTRESS NOTED. WILL CONTINUE TO MONITOR PATIENT.
--- NOTE | 2017-12-22 17:45 | NUR ---
PATIENT AMBULATED OFF THE FLOOR WITH DIRECTOR OF ENTERPRISE APPLICATIONS. PATIENT'S BELONGINGS WERE GIVEN TO HIM BY SECURITY. PATIENT TOOK ALL OF HIS BELONGINGS WITH HIM. PATIENT IN STABLE CONDITION.
== END 2017-12-22 17:45 | disposition home or self-care (01) | DRG 812 ==
LOC: MED 15:58 → MTU 12-16 02:55
PROVIDERS: ADMIT Family Medicine Sports Medicine; ATTEND Family Medicine Sports Medicine
DX: T43.621A Poisoning by amphetamines, accidental (unintentional), initial encounter (principal); E43 Unspecified severe protein-calorie malnutrition; G92 Toxic encephalopathy; R45.851 Suicidal ideations; F25.0 Schizoaffective disorder, bipolar type; J45.909 Unspecified asthma, uncomplicated; F17.210 Nicotine dependence, cigarettes, uncomplicated; F15.10 Other stimulant abuse, uncomplicated; K76.9 Liver disease, unspecified; F32.9 Major depressive disorder, single episode, unspecified; Z59.0 Homelessness; Z88.1 Allergy status to other antibiotic agents; Z79.1 Long term (current) use of non-steroidal anti-inflammatories (NSAID); Z79.899 Other long term (current) drug therapy; Y92.89 Other specified places as the place of occurrence of the external cause; Z68.27 Body mass index [BMI] 27.0-27.9, adult; Z91.14 Patient's other noncompliance with medication regimen
CPT/HCPCS: 36415; 71045; 80048; 80053; 80305; 81001; 82140; 83036; 83735; 84100; 84436; 84443; 84479; 85025; 85610; 85730; 87081; 93005; 96361; 96372; 96374; 99285; G0480; G0482; J1200; J1630; J7030

== ENCOUNTER 2018-01-31 10:12 | Emergency (ER) | payer MEDICAID ==
[~2018-01-31] VITALS: Ht 180.3 cm; Wt 90.7 kg
[~2018-01-31 10:12] MED LIST changes: -ACET-2869 PO
[2018-01-31 10:20] VITALS: BP 127/77
--- NOTE | 2018-01-31 10:25 | NUR ---
PT AMBULATED TO BED 4
--- NOTE | 2018-01-31 10:30 | NUR ---
PT. CAME IN W/ C/O PAIN AND RASHES IN RECTUM. PT. STATES " i HAVE HAD THIS FOR 3-4 MONTHS, THEY SAID IT WS HERPES AND GAVE ME ANTIBIOTICS BUT IT DID NOT GO AWAY , IT IS GETTING WORSE AND IT HURTS, I HAVE NOT HAD ANY SEX ". PT. IS AAOX4, RR EVEN AND UNLABORED, PT. STATES 8/10 PAIN THAT IS BURNING AND NON RADIATING FROM RECTUM. PT. DENIES ANY N/V/D. NO SOB, NO CHEST PAIN. Luz Maria THOMPSON AWARE. WILL CONTINUE TO MONITOR.
--- NOTE | 2018-01-31 10:54 | NUR ---
PT 'S UNABLE TO PROVIDE URINE AT THIS TIME. PROVIDED WATER & JUICES.
--- NOTE | 2018-01-31 10:55 | NUR ---
LAB AT BEDSIDE AT THIS TIME.
[2018-01-31 11:17] LABS: BASOPHILS % (AUTO) 0.8 % (0.0-2.0); EOSINOPHILS # (AUTO) 0.1 K/uL (0-0.4); EOSINOPHILS % (AUTO) 1.2 % (0.0-4.0); HEMATOCRIT 40.2 % (36-52); HEMOGLOBIN 13.5 g/dL (12.0-18.0); LYMPHOCYTES # (AUTO) 1.2 K/uL (2.0-11.5); LYMPHOCYTES % (AUTO) 20.5 % (20.5-51.1); MEAN CORPUSCULAR HEMOGLOBIN 29 pg (27-31); MEAN CORPUSCULAR HGB CONC 34 g/dL (33-37); MEAN CORPUSCULAR VOLUME 85.2 fL (80-94); MONOCYTES # (AUTO) 0.6 K/uL (0.8-1.0); MONOCYTES % (AUTO) 9.9 % (1.7-9.3); NEUTROPHILS # (AUTO) 3.9 K/uL (1.8-7.7); NEUTROPHILS % (AUTO) 67.6 % (42.2-75.2); PLATELET COUNT (AUTO) 301 K/uL (140-450); RED BLOOD CELL COUNT(AUTO) 4.73 MIL/uL (4.20-6.10); RED CELL DISTRIBUTION WIDTH 14.5 % (11.6-13.7); WHITE BLOOD COUNT (AUTO) 5.7 K/uL (4.8-10.8)
--- NOTE | 2018-01-31 11:40 | NUR ---
PT. IN BED RESTING COMFORTABLY, PROVIDED JUICE AND WATER AND STATES HE CAN NOT PROVIDE URINE AT THIS TIME. RR EVEN AND UNLABORED, AAOX4. WILL CONTINUE TO MONITOR.
--- NOTE | 2018-01-31 12:16 | NUR ---
Patient being reevaluated by DR HENDERSON at bedside.
--- NOTE | 2018-01-31 12:20 | NUR ---
PT. UNABLE TO PROVIDE URINE .
[2018-01-31 12:21] VITALS: BP 127/77
--- NOTE | 2018-01-31 12:21 | NUR ---
Patient discharged with v/s stable. Written and verbal after care instructions given and explained. Patient alert, oriented and verbalized understanding of instructions. Ambulatory with steady gait. All questions addressed prior to discharge. ID band removed. Patient advised to follow up with PMD. Rx of BENADRYL TOPICAL CREAM given. Patient educated on indication of medication including possible reaction and side effects. Opportunity to ask questions provided and answered.
[2018-01-31 13:20] LABS: POTASSIUM 3.8 mmol/L (3.5-5.1)
[2018-01-31 13:21] LABS: ALBUMIN 3.2 g/dL (3.4-5.0); ANION GAP 9.4 (8-16); CARBON DIOXIDE 29.4 mmol/L (21-32); CREATININE 0.9 mg/dL (0.7-1.3); TOTAL BILIRUBIN 0.4 mg/dL (0.0-1.0)
== END 2018-01-31 12:21 | disposition home or self-care (01) ==
LOC: MED 10:12
DX: A63.0 Anogenital (venereal) warts (principal); J45.909 Unspecified asthma, uncomplicated; Z88.1 Allergy status to other antibiotic agents; Z86.19 Personal history of other infectious and parasitic diseases
CPT/HCPCS: 36415; 80053; 83605; 85025; 87040; 99284

== ENCOUNTER 2018-09-09 07:45 | Emergency (ER) | payer MEDICAID ==
[~2018-09-09] VITALS: Ht 180.3 cm; Wt 90.7 kg
[2018-09-09 07:47] VITALS: BP 114/76
--- NOTE | 2018-09-09 07:47 | NUR ---
TO BED # 12 AMBULATORY, REPORT GIVEN TO TRAY ALEXANDER
--- NOTE | 2018-09-09 08:00 | NUR ---
PT C/O SORE THROAT X 1 WEEK AND SYPHILIS. PT STATES HE IS NOT AWARE OF HOW HE CONTRACTED SYPHILIS BUT NOW HE NEEDS TREATMENT FROM A DR. PT STATES PAIN 8/10 FOR THROAT. DENIES MEDICAL HX AND RX. VSS; PATIENT POSITIONED FOR COMFORT; HOB ELEVATED; BEDRAILS UP X1; BED DOWN. ER MD MADE AWARE OF PT STATUS.
--- NOTE | 2018-09-09 08:02 | NUR ---
STREP THROAT & INFLUENZASWAB DONE; SENT SPECIMEN TO LAB.
[2018-09-09] MEDS ORDERED: PENICILLIN G BENZATHINE L-A 1.2 MU/2 ML SYR IM ONE (08:20)
[2018-09-09] MEDS ORDERED: DEXAMETHASONE 10 MG/ML VIAL IM ONE (08:20)
[2018-09-09 09:33] VITALS: BP 130/78
--- NOTE | 2018-09-09 09:34 | NUR ---
Patient discharged with v/s stable. Written and verbal after care instructions given and explained. Patient alert, oriented and verbalized understanding of instructions. Ambulatory with steady gait. All questions addressed prior to discharge. ID band removed. Patient advised to follow up with PMD. Rx of KEFLEX given. Patient educated on indication of medication including possible reaction and side effects. Opportunity to ask questions provided and answered. HOMELESS PACKET GIVEN
== END 2018-09-09 09:34 | disposition home or self-care (01) ==
LOC: MED 07:45
DX: J02.9 Acute pharyngitis, unspecified (principal); R09.82 Postnasal drip; J45.909 Unspecified asthma, uncomplicated; F17.210 Nicotine dependence, cigarettes, uncomplicated; Z86.19 Personal history of other infectious and parasitic diseases; Z79.899 Other long term (current) drug therapy; Z88.1 Allergy status to other antibiotic agents
CPT/HCPCS: 36415; 87081; 87804; 96372; 99283; J0561; J1100

== ENCOUNTER 2018-12-15 07:31 | Emergency (ER) | payer MEDICAID ==
[~2018-12-15] VITALS: Ht 180.3 cm; Wt 87.1 kg
[2018-12-15 07:37] VITALS: BP 116/79
--- NOTE | 2018-12-15 07:42 | NUR ---
PT AMBULATED TO ER BED 08
--- NOTE | 2018-12-15 07:50 | NUR ---
PT BIB SELF C/O JOINT PAIN: WRIST, KNEE, ANKLES. PT STATES HE WAS DIAGNOSED WITH SYPHILIS LAST YEAR AT [place]. STATES IT KEEPS AGGRAVATING HIS JOINTS AND HE IS NOT FEELING WELL. DENIES N/V/D, FEVER, CHEST PAIN, SOB. GAIT-WNL, LUNGS CL BILAT, VSS, LAB AT BEDSIDE. PT AAOX4, PAIN 5/10. DENIES N/V/D; SKIN IS INTACT, PINK/WARM/DRY; AAOX4, PERRL, WITH EVEN AND STEADY GAIT; LUNGS CLEAR BL, BREATHING UNLABORED; HR EVEN AND REGULAR, BL PERIPHERAL PULSES PRESENT; BS ACTIVE X4, NO TENDERNESS TO PALPATION. PT DENIES ANY FEVER, CP, SOB, OR COUGH AT THIS TIME; PT STATES 4/10 PAIN AT THIS TIME; VSS; PATIENT POSITIONED FOR COMFORT; HOB ELEVATED; BEDRAILS UP X2; BED DOWN.
--- NOTE | 2018-12-15 07:52 | NUR ---
ER AT BEDSIDE
--- NOTE | 2018-12-15 07:57 | NUR ---
C/O JOINT PAIN: WRIST, KNEE, ANKLES. PAIN /. PT STATES HE WAS DIAGNOSED WITH SYPHILIS LAST YEAR AT [place]. STATES IT KEEPS AGGRAVATING HIS JOINTS AND HE IS NOT FEELING WELL. DENIES N/V/D, FEVER, CHEST PAIN, SOB. AA0X4. BED IS DOWN, LOCKED, BED RAIL X 1, ERMD NOTIFIED OF PATIENT STATUS HX: HEP C, SYPHILIS DX: RESPIRIDOL
[2018-12-15 08:23] LABS: BASOPHILS % (AUTO) 0.9 % (0.0-2.0); EOSINOPHILS # (AUTO) 0.2 K/uL (0-0.4); EOSINOPHILS % (AUTO) 3.1 % (0.0-4.0); HEMATOCRIT 41.6 % (36-52); HEMOGLOBIN 14.3 g/dL (12.0-18.0); LYMPHOCYTES # (AUTO) 1.6 K/uL (2.0-11.5); LYMPHOCYTES % (AUTO) 31.5 % (20.5-51.1); MEAN CORPUSCULAR HEMOGLOBIN 30 pg (27-31); MEAN CORPUSCULAR HGB CONC 34 g/dL (33-37); MEAN CORPUSCULAR VOLUME 86.5 fL (80-94); MONOCYTES # (AUTO) 0.7 K/uL (0.8-1.0); MONOCYTES % (AUTO) 13.8 % (1.7-9.3); NEUTROPHILS # (AUTO) 2.6 K/uL (1.8-7.7); NEUTROPHILS % (AUTO) 50.7 % (42.2-75.2); PLATELET COUNT (AUTO) 259 K/uL (140-450); RED BLOOD CELL COUNT(AUTO) 4.81 MIL/uL (4.20-6.10); RED CELL DISTRIBUTION WIDTH 13.3 % (11.6-13.7); WHITE BLOOD COUNT (AUTO) 5.1 K/uL (4.8-10.8)
[2018-12-15 08:39] LABS: ALBUMIN 3.6 g/dL (3.4-5.0); ANION GAP 15.9 (8-16); CARBON DIOXIDE 24.1 mmol/L (21-32); TOTAL BILIRUBIN 0.4 mg/dL (0.0-1.0)
--- NOTE | 2018-12-15 09:00 | NUR ---
REPORT RECIEVED FROM TRAY ALEXANDER
--- NOTE | 2018-12-15 09:05 | NUR ---
PT ON STRETCHER IN SUPINE POSITION, EYES OPEN, RESPIS E/U, DENIES CP/SOB AT THIS TIME. BED IN LOW POSITION, LOCKED AND PT ON FULL MONITOR, WILL CONTINUE TO MONITOR CLOSELY.
[2018-12-15 10:45] VITALS: BP 120/75
--- NOTE | 2018-12-15 10:45 | NUR ---
Patient discharged with v/s stable. Written and verbal after care instructions given and explained. Patient alert, oriented and verbalized understanding of instructions. Ambulatory with steady gait. All questions addressed prior to discharge. ID band removed. Patient advised to follow up with PMD. ADVISED TO CALL MEDICAL RECORDS TO FIND RESULTS OUT TOMORROW. Opportunity to ask questions provided and answered. GIVEN HOMELESS PACKET, SIGNED WAIVER REFUSING ANY ASSITANCE FROM HOSPITAL AND MEAL GIVEN WITH HYGIENE BAG.
== END 2018-12-15 10:45 | disposition home or self-care (01) ==
LOC: MED 07:31
DX: M25.50 Pain in unspecified joint (principal); F20.9 Schizophrenia, unspecified; F15.10 Other stimulant abuse, uncomplicated; J45.909 Unspecified asthma, uncomplicated; Z79.899 Other long term (current) drug therapy; Z88.1 Allergy status to other antibiotic agents
CPT/HCPCS: 36415; 80053; 81002; 85025; 86592; 99283

== ENCOUNTER 2019-02-26 14:58 | Emergency (ER) | payer MEDICAID ==
[~2019-02-26] VITALS: Ht 180.3 cm; Wt 99.8 kg
[2019-02-26 15:13] VITALS: BP 141/66
--- NOTE | 2019-02-26 16:27 | NUR ---
PT TAKEN TO BED 1.
--- NOTE | 2019-02-26 16:45 | NUR ---
C/O R HAND THUMB PAIN 07/13 X6 WEEKS. DENIES N/V/D/FEVER. PT REPORTS SMOKING METH, LAST TIME WAS 2 DAYS AGO, DENIES INJECTING THE DRUG. R THUMB IS SWOLLEN AND RED, M/S FUNCTION INTACT. VSS AT THIS TIME, BED IN LOW POSITION, SIDE RAIL UP X1. PROVIDED PT UA CUP AND INSTRUCTED HOW TO PROVIDE URINE SAMPLE.
--- NOTE | 2019-02-26 17:30 | NUR ---
ERMD AT BEDSIDE
[2019-02-26] MEDS ORDERED: MORPHINE SULFATE 4 MG/ML SYR IM ONE (17:35)
[2019-02-26] MEDS ORDERED: NEOMYCIN/POLYMYXIN/BACITRACIN 0.9 GM/1 PKT TP ONE (17:35)
[2019-02-26] MEDS ORDERED: cefTRIAXone 1,000 MG in LIDOCAINE 1% ***ER ONLY *** 2.1 ML IM ONE (17:35)
[2019-02-26] MEDS ORDERED: cefTRIAXone 1,000 MG VIAL ONE (18:20)
[2019-02-26] MEDS ORDERED: LIDOCAINE MPF 1% - 5 mL VIAL 5 ML ONE (18:22)
--- NOTE | 2019-02-26 19:18 | NUR ---
Patient discharged with v/s stable. Written and verbal after care instructions given and explained. Patient alert, oriented and verbalized understanding of instructions. Ambulatory with steady gait. All questions addressed prior to discharge. ID band removed. Patient advised to follow up with PMD. Rx of KEFLEX, BACTRIM, KETOROLAC given. Patient educated on indication of medication including possible reaction and side effects. Opportunity to ask questions provided and answered.
[2019-02-26 19:36] VITALS: BP 135/70
== END 2019-02-26 19:18 | disposition home or self-care (01) ==
LOC: MED 14:58
DX: L03.011 Cellulitis of right finger (principal); F15.10 Other stimulant abuse, uncomplicated; J45.909 Unspecified asthma, uncomplicated; Z59.0 Homelessness; Z79.899 Other long term (current) drug therapy; Z88.1 Allergy status to other antibiotic agents
CPT/HCPCS: 73140; 90471; 90715; 96372; 99283; J0696; J2001; J2270; Q0092

== ENCOUNTER 2019-04-11 12:48 | Emergency (ER) | payer MEDICAID ==
[~2019-04-11] VITALS: Ht 180.3 cm; Wt 81.6 kg
[2019-04-11 12:56] VITALS: BP 143/91
--- NOTE | 2019-04-11 13:03 | NUR ---
left gluteal abscess x 1 wk---
[2019-04-11] MEDS ORDERED: BACITRACIN OINT 500 UNITS/GM PKT TP ONE (13:20)
[2019-04-11] MEDS ORDERED: cefTRIAXone 1,000 MG in LIDOCAINE MPF 1% - 5 mL VIAL 2.1 ML IM ONE (13:20)
--- NOTE | 2019-04-11 13:42 | NUR ---
Patient discharged with v/s stable. Written and verbal after care instructions given and explained. Patient alert, oriented and verbalized understanding of instructions. Ambulatory with steady gait. All questions addressed prior to discharge. ID band removed. Patient advised to follow up with PMD. Rx of KEFLEX/ MUPIROCIN 2%/ BACTRIM DS/ NAPROXEN given. Patient educated on indication of medication including possible reaction and side effects. Opportunity to ask questions provided and answered.
[2019-04-11 13:43] VITALS: BP 139/91
== END 2019-04-11 13:42 | disposition home or self-care (01) ==
LOC: MED 12:48
DX: L03.317 Cellulitis of buttock (principal); J45.909 Unspecified asthma, uncomplicated; Z88.1 Allergy status to other antibiotic agents; Z79.899 Other long term (current) drug therapy; Z86.19 Personal history of other infectious and parasitic diseases
CPT/HCPCS: 96372; 99283; J0696; J2001

== ENCOUNTER 2021-03-14 23:24 | Emergency (ER) | payer MEDICAID ==
[~2021-03-14] VITALS: Ht 180.3 cm; Wt 90.7 kg
[2021-03-14 23:38] VITALS: BP 117/60
--- NOTE | 2021-03-15 01:12 | NUR ---
pt d/c'ed but refused to sign d/c paperwork.
== END 2021-03-15 01:13 | disposition home or self-care (01) ==
LOC: MED 23:24
DX: R53.1 Weakness (principal); R26.2 Difficulty in walking, not elsewhere classified; J45.909 Unspecified asthma, uncomplicated; Z88.1 Allergy status to other antibiotic agents; Z79.899 Other long term (current) drug therapy
CPT/HCPCS: 99281

== ENCOUNTER 2022-02-14 01:02 | Emergency (ER) | payer OTHER, MEDICAID ==
[~2022-02-14] VITALS: Ht 188 cm; Wt 127.0 kg
[2022-02-14 01:06] VITALS: BP 130/90
--- NOTE | 2022-02-14 01:50 | NUR ---
Dr. Denton examming patient.
[2022-02-14] MEDS ORDERED: IBUPROFEN 800 MG TAB PO ONE (02:00)
[2022-02-14] MEDS ORDERED: IBUP-2218 PO (03:49)
[2022-02-14] MEDS ORDERED: IBUPROFEN 800 MG TAB ONE (04:28)
[2022-02-14 04:32] VITALS: BP 130/90
--- NOTE | 2022-02-14 04:32 | NUR ---
The patient's care was reviewed and supervised by Areli Craven RN.
--- NOTE | 2022-02-14 04:32 | NUR ---
Patient discharged with v/s stable. Written and verbal after care instructions given and explained. Patient verbalized understanding. Ambulatory with steady gait. All questions addressed prior to discharge. Advised to follow up with PMD.
== END 2022-02-14 04:42 | disposition home or self-care (01) ==
LOC: MED 01:02
DX: S89.91XA Unspecified injury of right lower leg, initial encounter (principal); S89.92XA Unspecified injury of left lower leg, initial encounter; J45.909 Unspecified asthma, uncomplicated; Z79.899 Other long term (current) drug therapy; Z88.1 Allergy status to other antibiotic agents; V29.49XA Motorcycle driver injured in collision with other motor vehicles in traffic accident, initial encounter; Y93.55 Activity, bike riding; Y92.89 Other specified places as the place of occurrence of the external cause; Y99.8 Other external cause status
CPT/HCPCS: 73562; 73590; 73630; 99284

== ENCOUNTER 2024-01-23 08:56 | Emergency (ER) | payer MEDICAID, OTHER ==
[~2024-01-23] VITALS: Ht 180.3 cm; Wt 90.7 kg
[~2024-01-23 08:56] MED LIST changes: +IBUP-2218 PO
[2024-01-23 08:59] VITALS: BP 123/77; PULSE 71; RESP 18; TEMP 97.4; O2SAT 97
[2024-01-23 12:18] VITALS: BP 132/78; PULSE 76; RESP 16; TEMP 98; O2SAT 99
== END 2024-01-23 12:00 | disposition home or self-care (01) ==
LOC: MED 08:56
DX: S09.90XA Unspecified injury of head, initial encounter (principal); R07.9 Chest pain, unspecified; J45.909 Unspecified asthma, uncomplicated; Z88.8 Allergy status to other drugs, medicaments and biological substances; Z79.899 Other long term (current) drug therapy; Y08.89XA Assault by other specified means, initial encounter; Y93.89 Activity, other specified; Y92.89 Other specified places as the place of occurrence of the external cause; Y99.8 Other external cause status
CPT/HCPCS: 70450; 71101; 99284